=== PATIENT | male | born 1960 | race African-American/Black ===

== ENCOUNTER 2016-12-12 20:43 | Inpatient (IN) | payer MEDICARE, OTHER ==
--- NOTE | ~2016-12-12 | ST ---
Unit #: [id number] #: [id number] Patient: COLT CURTIS [id number] [facility] [address] [place], [place] [address] [id number] I MR#: [id number] NAME: COLT CURTIS : 1960 SEX: M STUDY DATE/TIME: 12/16/2016 UNIT: [facility] ROOM: 572 STUDY DESCRIPTION: CARDIOLOGY STUDY Attending Physician: Jabari Chandler M.D. Primary Care Physician: Samreen Samayoa [facility] CARDIOLOGY REPORT EXAM Walking Lexiscan REASON FOR EXAM Shortness of breath. SUMMARY Baseline EKG shows normal sinus rhythm with some T-wave inversions in leads V5, V6, II, III, and aVF. A total of 0.4 mg of Lexiscan was injected per protocol followed by Cardiolite. Patient walked for a total of 4 minutes. Baseline resting heart rate was 88 beats per minute and sima to a maximum of 134 beats per minute. Resting blood pressure was 142/94 and increased to 178/92. The patient had no symptoms, however, there were multifocal PVCs noted and frequent PACs also noted. There remained T-wave inversions in leads V5, V6, II, III, and aVF. The test was stopped due to protocol completion. There were no obvious ST changes and the patient was asymptomatic. However, there was frequent multifocal arrhythmia noted, atrial and ventricular premature complexes and some T-wave inversions in various leads as above. Please correlate with Cardiolite imaging. Dictated by... Chela Francis APRN for Jia Snyder TD: 12/16/2016 16:46 JOB #: [id number] CARDIOLOGY REPORT X CARDIOLOGY REPORT
--- NOTE | ~2016-12-12 | EKG ---
PATIENT: COLT CURTIS UNIT #: [id number] Ventricular Rate: 83 BPM Atrial Rate: 83 BPM P-R Interval: 134 ms QRS Duration: 86 ms Q-T Interval: 372 ms QTC Calculation(Bezet): 437 ms P Union: 41 degrees Calculated R Union: 45 degrees Calculated T Union: -132 degrees Diagnosis Line: Normal sinus rhythm Diagnosis Line: Nonspecific T wave abnormality Diagnosis Line: Abnormal ECG Diagnosis Line: When compared with ECG of 16-DEC-2016 11:18, Diagnosis Line: Premature atrial complexes are no longer Present Diagnosis Line: T wave inversion no longer evident in Lateral Diagnosis Line: leads Diagnosis Line: Confirmed by VIRAJ BOSTON MD ([id number]) on Diagnosis Line: 12/17/2016 12:08:37 PM INTERPRETING MD: LACEY
--- NOTE | ~2016-12-12 | CR72 ---
[facility] A Service of [facility] RADIOLOGY TEXT RESULTS PATIENT: COLT CURTIS LOCATION: [facility] 5711-20 : 62 UNIT #: [id number] AGE: [address]: Jabari Chandler MD SEX: M ORDER DR: [id number] [facility] [address] [place], [place] [address] [id number] I MR#: [id number] Acc #: [id number] NAME: COLT CURTIS. : 1960 SEX: M STUDY DATE/TIME: 12/12/2016 19:42 UNIT: [facility] ROOM: [facility] STUDY DESCRIPTION: CR Chest Single View Portable Attending Physician: Ailyn Morelos M.D. Ordering Physician: John Fernández M.D. Primary Care Physician: [facility] MEDICAL IMAGING REPORT This report is preliminary unless electronic signature is present EXAM AP portable chest. DATE OF EXAM 12/12/2016 HISTORY 56-year-old male in the ED complaining of 4-day history of shortness of air, congestion and cough. TECHNIQUE AP portable upright chest x-ray. FINDINGS The exam shows diffusely increased interstitial markings throughout both lungs, greatest in the perihilar regions and lung bases. This is new since prior studies. The appearance suggests mild interstitial pulmonary edema which may be cardiogenic or noncardiogenic. Diffuse interstitial pneumonitis should be excluded. There was no airspace consolidation or visible pleural effusion. The heart is mildly enlarged. IMPRESSION Pulmonary findings suggesting mild interstitial pulmonary edema, correlate clinically. Mild cardiomegaly. Dictated by... Efren Danielle M.D. THIS IS AN ELECTRONICALLY VERIFIED REPORT Efren Danielle M.D. at 12/13/2016 10:17 AM RGW/jt [facility] A Service of [facility] RADIOLOGY TEXT RESULTS PATIENT: COLT CURTIS LOCATION: [facility] 5711-20 : 61 UNIT #: [id number] AGE: [address]: Jabari Chandler MD SEX: M ORDER DR: TD: 12/13/2016 00:48 JOB #: [id number] MEDICAL IMAGING REPORT COPY
--- NOTE | ~2016-12-12 | DS ---
Unit #: [id number] #: [id number] Patient: COLT CURTIS [id number] [address] [place], [place] [address] [id number] I MR#: [id number] NAME: COLT CURTIS. ROOM: 572 Age: 56 Sex: M Admission Date: 12/12/2016 : 1960 Discharge Date: 12/18/2016 Attending Physician: Jabari Chandler M.D. Primary Care Physician: Samreen Samayoa [facility] DISCHARGE SUMMARY CONSULTANTS 1. Dr. Florian Barnett. 2. Dr. Mitchel Cardenas. PROCEDURES Cardiac catheterization. Normal coronary arteries. EF of 30%. ADMITTING DIAGNOSIS Acute hypoxic respiratory failure with shortness of breath. SECONDARY DIAGNOSES 1. Chronic obstructive pulmonary disease. 2. Diabetes. 3. Hypertension. 4. Hyperlipidemia. 5. History of parietoccipital hemorrhage in the past secondary to his anticoagulation. 6. Gout. 7. Hepatitis C. 8. History of substance abuse. HISTORY OF PRESENT ILLNESS The patient is a 56-year-old gentleman with multiple medical problems including COPD, diabetes, hypertension, hyperlipidemia, hepatitis C, who presented to the emergency room with the chief complaint of shortness of breath. Initially, he was treated for possible community-acquired pneumonia. In the workup, he was noted to have an EF of 30% and for further workup he initially had a stress test. The stress test was concerning for ischemia and for further workup he had a cardiac catheterization. Cardiac catheterization showed normal coronary arteries and his medications were titrated. He was restarted on Coumadin. We had a long conversation with the patient. Explained to the patient that if he notices any increased bleeding if there is any change in his medications he needs to talk to his physician. Will be restarting on Coumadin without any bridging anticoagulation. I am requesting that he follow up with the cardiology clinic for titrating his INR to keep it in a target range between 2 to 3. Explained to him he is at increased risk for bleeding and if he notices any bleeding, he needs to stop the medication. He is doing clinically better and he will be discharged home today. He is requested to follow up with cardiology, nephrology and primary care in one to two weeks. He has an appointment set up for cardiology. We will also request him to get an INR checked and follow up with Cardiology as an outpatient. PHYSICAL EXAMINATION ON DISCHARGE Unit #: [id number] #: [id number] Patient: COLT CURTIS VITAL SIGNS: Temperature 98.4, pulse rate 84, respiratory rate 16, blood pressure 165/106. GENERAL: Patient is alert and oriented times 3, lying in the bed in no acute distress. HEENT: Normocephalic, atraumatic. No icterus. PERRLA. Extraocular muscles are intact. NECK: Supple. No JVD. HEART: S1, S2 regular rate and rhythm. CHEST: Bilateral equal air entry. Clear to auscultation. ABDOMEN: Soft, nontender. EXTREMITIES: No edema. Normal peripheral pulses. DISCHARGE MEDICATIONS 1. Norvasc 10 mg daily. 2. Lisinopril 40 mg p.o. h.s. 3. Metformin 500 mg two tablets p.o. daily. 4. Prednisone tapering dose. 5. Coumadin 5 mg p.o. daily. 6. Metoprolol 25 mg p.o. b.i.d. 7. Lasix 40 mg p.o. daily. 8. Humibid LA 600 mg p.o. b.i.d. 9. Lipitor 20 mg h.s. 10. Levemir 50 units subcu b.i.d. 11. Aspirin 81 mg daily. 12. Protonix 40 mg p.o. daily. Total time spent in his care 35 minutes. Dictated by... Jia Hernandez TD: 12/18/2016 16:24 JOB #: [id number] DISCHARGE SUMMARY X X DISCHARGE SUMMARY
--- NOTE | ~2016-12-12 | EKG ---
PATIENT: COLT CURTIS UNIT #: [id number] Ventricular Rate: 88 BPM Atrial Rate: 88 BPM P-R Interval: 138 ms QRS Duration: 108 ms Q-T Interval: 392 ms QTC Calculation(Bezet): 474 ms P Long Barn: 48 degrees Calculated R Long Barn: 60 degrees Calculated T Long Barn: -109 degrees Diagnosis Line: Sinus rhythm with Premature supraventricular Diagnosis Line: complexes Diagnosis Line: ST and T wave abnormality, consider inferolateral Diagnosis Line: ischemia Diagnosis Line: Prolonged QT Diagnosis Line: Abnormal ECG Diagnosis Line: When compared with ECG of 12-DEC-2016 19:38, Diagnosis Line: ST now depressed in Inferior leads Diagnosis Line: Confirmed by VIRAJ BOSTON MD ([id number]) on Diagnosis Line: 12/15/2016 10:53:17 PM INTERPRETING MD: LACEY
--- NOTE | ~2016-12-12 | CT57 ---
[facility] A Service of [facility] RADIOLOGY TEXT RESULTS PATIENT: COLT CURTIS LOCATION: [facility] 572-01 : 62 UNIT #: [id number] AGE: [address]: Jabari Chandler MD SEX: M ORDER DR: [id number] [facility] [address] [place], [place] [address] [id number] I MR#: [id number] Acc #: [id number] NAME: COLT CURTIS. : 1960 SEX: M STUDY DATE/TIME: 12/15/2016 12:27 UNIT: [facility] ROOM: [facility] STUDY DESCRIPTION: CT Chest Wo Cont Attending Physician: Jabari Chandler M.D. Ordering Physician: Physician Non-Staff Primary Care Physician: [facility] MEDICAL IMAGING REPORT This report is preliminary unless electronic signature is present EXAM CT chest, noncontrast, 12/15/2016 HISTORY 56-year-old male admitted to the hospital through the ED on 12/12/2016 with acute hypoxic respiratory failure. 10-day history of shortness of air. TECHNIQUE CT examination of the chest was performed without IV contrast. This CT exam was performed with one or more of the following radiation dose reduction techniques: automatic exposure control, adjustment of mA and/or kV according to patient size, and iterative reconstruction. FINDINGS Lung images show mild diffuse central lobular and paraseptal emphysema, greatest in the upper lobes. There is plate-like atelectasis in both lung bases along with tiny bilateral pleural effusions. Diffusely increased interstitial markings present on the chest x-ray of 12/12/2016 suggested potential mild interstitial edema, but this is not demonstrated on chest CT today. Heart size is normal, and there is no pericardial effusion. Mildly prominent mediastinal lymph nodes are nonspecific. Limited images through the uppermost abdomen show mild hepatomegaly and postop changes of cholecystectomy. IMPRESSION 1. Mild diffuse centrilobular and paraseptal emphysema, greatest in the upper lobes. 2. Tiny bilateral pleural effusions with plate-like atelectasis in the dependent posterior lung bases. Lungs otherwise clear today. 3. Heart size is normal. No pericardial effusion. [facility] A Service of [facility] RADIOLOGY TEXT RESULTS PATIENT: COLT CURTIS LOCATION: [facility] 572-01 : [birth year] UNIT #: [id number] AGE: [address]: Jabari Chandler MD SEX: M ORDER DR: Dictated by... Efren Danielle M.D. THIS IS AN ELECTRONICALLY VERIFIED REPORT Efren Danielle M.D. at 12/16/2016 8:40 AM CRISTELA/sharda TD: 12/15/2016 21:44 JOB #: [id number] MEDICAL IMAGING REPORT COPY
--- NOTE | ~2016-12-12 | US77 ---
[facility] A Service of [facility] RADIOLOGY TEXT RESULTS PATIENT: COLT CURTIS LOCATION: [facility] 572-01 : 62 UNIT #: [id number] AGE: [address]: Jabari Chandler MD SEX: M ORDER DR: [id number] [facility] [address] [place], [place] [address] [id number] I MR#: [id number] Acc #: [id number] NAME: COLT CURTIS : 1960 SEX: M STUDY DATE/TIME: 12/16/2016 17:54 UNIT: [facility] ROOM: [facility] STUDY DESCRIPTION: US Kidney Bilateral Complete Attending Physician: Jabari Chandler M.D. Ordering Physician: Jennifer Cardenas M.D. Primary Care Physician: [facility] MEDICAL IMAGING REPORT This report is preliminary unless electronic signature is present EXAM Renal ultrasound bilateral 12/16/2016 INDICATIONS Chronic renal disease (stage III). Diabetes, insulin dependent diabetes, hypertension. TECHNIQUE Sonographic imaging kidneys was performed bilaterally. We have no comparisons. FINDINGS The bladder is sonographically unremarkable. The right kidney measures 11.9 x 6.2 x 6.2 cm and the left kidney measures 13.7 x 8.2 x 6.9 cm. No shadowing stone on either side. Incidental probably benign cyst in the lateral midpole right kidney measures 1.3 x 1.1 cm. Incidental likely benign cyst associated with the midpole left kidney measures 1.4 x 1.4 cm. Both of these cysts demonstrate very faint internal echoes but no internal color-flow. Kidneys are otherwise unremarkable. Consider interval followup ultrasound in 1 year to reassess stability of the probably benign minimally complicated cyst. IMPRESSION 1. No hydronephrosis or shadowing stone in either kidney. 2. There are 2 probably benign minimally complicated cysts, 1 in each kidney. Suggest interval followup ultrasound in 1 year to reassess stability. 3. Bladder unremarkable. Dictated by... Mahendra Clark M.D. [facility] A Service of [facility] RADIOLOGY TEXT RESULTS PATIENT: COLT CURTIS LOCATION: [facility] 572-01 : [birth year] UNIT #: [id number] AGE: [address]: Jabari Chandler MD SEX: M ORDER DR: THIS IS AN ELECTRONICALLY VERIFIED REPORT Mahendra Clark M.D. at 12/17/2016 10:18 AM Gómez TD: 12/17/2016 01:47 JOB #: [id number] MEDICAL IMAGING REPORT COPY
--- NOTE | ~2016-12-12 | HP ---
Unit #: [id number] #: [id number] Patient: COLT CURTIS [id number] [address] [address] [id number] I MR#: [id number] NAME: COLT CURTIS. ROOM: 82143 Age: 56 Sex: M Admission Date: 12/12/2016 : 1960 Attending Physician: Ailyn Morelos M.D. Primary Care Physician: [facility] HISTORY AND PHYSICAL CHIEF COMPLAINT Short of breath. HISTORY OF PRESENT ILLNESS The patient is a 56-year-old male with past medical history of likely COPD, diabetes, hypertension, hyperlipidemia, parietooccipital hemorrhage, gout, hepatitis C, who presented to the emergency department for evaluation of the above. The patient states that he has had a nonproductive cough for about a week. He denies any fever or chills, no chest pain. He states that the shortness of breath started today. He denies any paroxysmal nocturnal dyspnea. No orthopnea. He had dyspnea on exertion today. He denies any vomiting or diarrhea. He states that he has actually lost weight. He denies any swelling in his legs. He has had pain in his right foot similar to gout flair in the past. Upon arrival in the emergency department, the patient's oxygen saturation was 85% on room air. Chest x-ray shows increased interstitial markings concerning for edema versus pneumonitis. Lactic acid was 1.8. Rapid fu screen was negative. He was given Solu-Medrol, Levaquin and Rocephin in the emergency department. He is being admitted to [facility] for evaluation and further treatment. PAST MEDICAL HISTORY 1. Admission to [facility] May 20-2009 for rectal abscess. He underwent incision and drainage during that admission. 2. Hypertension. 3. Hyperlipidemia. 4. Diabetes. 5. History of parietooccipital hemorrhage in 2006 with no residual deficits. 6. Hepatitis C. 7. Gout. PAST SURGICAL HISTORY 1. Incision and drainage of rectal abscess. 2. Cardiac catheterization. 3. Surgery for kidney stones. 4. Cholecystectomy. SOCIAL HISTORY Unit #: [id number] #: [id number] Patient: COLT CURTIS The patient lives alone. He smokes a pack of cigarettes daily. He reports occasional alcohol use. He denies illicit drug use. He walks with a cane. FAMILY HISTORY Family history is notable for his mother dying of sepsis. She was also an IV drug user. ALLERGIES No known allergies. HOME MEDICATIONS 1. Norvasc 10 mg daily. 2. Quinapril 20 mg b.i.d. 3. Aspirin 81 mg daily. 4. Hydrochlorothiazide 25 mg daily. 5. Metformin 1000 mg b.i.d. b.i.d. 6. Levemir 35 units subcu b.i.d. REVIEW OF SYSTEMS A 10-point review of systems is negative except as indicated in the HPI. The patient states that his blood sugars are typically in the 200 range. DIAGNOSTIC STUDIES CARDIOVASCULAR: EKG shows sinus rhythm with premature atrial complexes at a rate of 83 beats per minute. IMAGING: Chest x-ray shows increased interstitial markings concerning for edema versus pneumonitis. LABORATORY: Arterial blood gas shows pH of 7.447, pCO2 of 32.8, pO2 of 54.5 on 15 L with an FIO2 of 50%. Rapid flu screen is negative. Troponin is 0.06. Lactic acid 1.8. Comprehensive metabolic panel is notable for a glucose of 314, BUN and creatinine 23 and 1.6 respectively, calcium is 8.3 but corrects when albumin of 2.9 is accounted for, alkaline phosphatase 121. Complete blood count notable for a hemoglobin and hematocrit of 11.7 and 37.3 respectively. PHYSICAL EXAMINATION VITAL SIGNS: Temperature is 97.3. Pulse 87. Respirations 18. Blood pressure 156/63. Oxygen saturation was initially 85% on room air. The patient is currently on high-flow oxygen. GENERAL: The patient is an -[place] male who is awake and alert, in no acute distress. HEENT: The head is atraumatic. Mucous membranes are moist. NECK: Neck is supple. Trachea is midline. CARDIOVASCULAR: Regular rate and rhythm. LUNGS: Demonstrate scattered wheezes and rhonchi. Breathing is not labored with conversation. ABDOMEN: Abdomen is soft, nontender, with bowel sounds present in all four quadrants. EXTREMITIES: Nontender with pedal edema. NEUROLOGIC: The patient is awake and alert. He follows commands. PSYCHIATRIC: Mood and affect are normal. The patient is cooperative. SKIN: Skin of examined areas is warm and dry. ASSESSMENT The patient is a 56-year-old male with: Unit #: [id number] #: [id number] Patient: COLT CURTIS 1. Acute respiratory failure, hypoxic. 2. Pneumonia, community acquired. 3. Likely chronic obstructive pulmonary disease exacerbation. 4. Uncontrolled diabetes. 5. Hypertension. 6. Hyperlipidemia. 7. History of parietooccipital hemorrhage. 8. Gout. 9. Hepatitis C. 10. Tobacco abuse. PLAN 1. Admit to intermediate level. 2. Normal saline at 75 mL and hour. 3. Healthy heart consistent carb diet if passes bedside swallow. 4. Titrate oxygen for sats greater than 92%. 5. Blood cultures x2. 6. Sputum culture and sensitivity. 7. Check procalcitonin level. 8. Levaquin 750 mg IV daily. 9. DuoNeb q.4 h. while awake and q.2 h. p.r.n. 10. Solu-Medrol 80 mg IV q.12 h. 11. Mucinex 600 mg p.o. b.i.d. 12. Serial cardiac enzymes. 13. Strict Is and Os. 14. Daily weights. 15. Two-D echo for further evaluation of LV function. 16. Hemoglobin A1C. 17. Low dose sliding scale insulin with Accu-Cheks. 18. Check an INR. 19. Urinalysis with culture and sensitivity. 20. Urine tox screen. 21. Protonix for GI prophylaxis since the patient will be on Solu-Medrol. 22. SCDs for DVT prophylaxis. 23. Repeat labs in the morning. 24. Additional workups and consultants based on above. Dictated by Jia Choe/elmira TD: 12/12/2016 22:38 JOB #: [id number] Unit #: [id number] #: [id number] Patient: COLT CURTIS HISTORY AND PHYSICAL X Ailyn Morelos MD HISTORY AND PHYSICAL
--- NOTE | ~2016-12-12 | TH ---
Unit #: [id number] #: [id number] Patient: CLOT CURTIS [id number] [address] [address] [id number] I MR#: [id number] NAME: COLT CURTIS. : 1960 SEX: M STUDY DATE/TIME: 12/16/2016 UNIT: [facility] ROOM: 572 STUDY DESCRIPTION: Attending Physician: Jabari Chandler M.D. Primary Care Physician: Samreen Samayoa [facility] CARDIOLOGY REPORT EXAM Lexiscan Cardiolite stress test, nuclear portion. PROCEDURE Using technetium 99m labeled Cardiolite, rest and stress SPECT images were obtained. Multiple SPECT images were obtained in various views including horizontal and vertical long axis and short axis views of the left ventricle. Images were obtained by gated SPECT method. The patient was administered 11.18 mCi of Cardiolite at rest. The patient was administered 32.4 mCi of Cardiolite after Lexiscan infusion was completed. On the stress images, there is a medium-sized area of severe decreased isotope activity inferiorly. The rest images also show a medium-sized area of decreased isotope activity inferiorly. Comparing rest and stress images, there is a medium-sized area of predominantly fixed defect involving the inferior wall of the left ventricle. Cannot rule out inferior wall myocardial infarction. The left ventricular ejection fraction is calculated to be 35%. There is severe hypokinesis of the inferior wall. The left ventricular cavity is qwdn-oj-cxtnsywepa dilated both at rest and post stress. CONCLUSION 1. Suspicion for possible medium-sized area of inferior wall myocardial infarction. 2. The left ventricular ejection fraction is calculated to be 35%. 3. There is severe inferior wall hypokinesis noted. 4. The left ventricular cavity is wmqn-[id number]-nxelvzyxsf dilated both at rest and post stress. 5. Abnormal Lexiscan Cardiolite stress test suggestive of coronary artery disease. Clinical correlation is requested. Technically limited study. Dictated by... Jia Snyder TD: 12/16/2016 16:10 JOB #: [id number] Unit #: [id number] #: [id number] Patient: COLT CURTIS CARDIOLOGY REPORT X Gladys Hargrove MD <ELECTRONICALLY SIGNED> 05/10/17 1428 CARDIOLOGY REPORT
--- NOTE | ~2016-12-12 | CO ---
Unit #: [id number] #: [id number] Patient: COLT CURTIS [id number] [address] [place], [place] [address] [id number] I MR#: [id number] NAME: COLT CURTIS ROOM: 572 Age: 56 Sex: M Admission Date: 12/12/2016 : 1960 Attending Physician: Jabari Chandler M.D. Primary Care Physician: [facility] Consultation Date: 12/16/2016 CONSULTATION REPORT REASON FOR CONSULT Renal insufficiency. Thank you very much for asking us to see this patient in consultation. HISTORY OF PRESENT ILLNESS Mr. Curtis is a 56-year-old male with history of COPD, diabetes, hypertension, who presented to the hospital on 12/12/2016 for shortness of breath, was diagnosed with probable COPD, who was started on steroids and antibiotics. The patient had non-SVT while he was here. The patient is apparently supposed to undergo possible heart catheterization tomorrow, Friday. Because of increased creatinine, I was asked to see the patient. The patient states he has never seen a kidney doctor before. He was noted back in 2011 to have a 1+ proteinuria; in 2016 in April, he had 3+ proteinuria with a creatinine of 1.3 at that time, it was 1.6 when he came in, down to 1.4 and 1.7 today. To note, his sugars have been running extremely elevated over the last several days secondary to presumed IV Solu-Medrol, which is changed to p.o. prednisone today. He is alert. He denies any shortness of breath now, chest pain, chest heaviness, nausea, or vomiting. Denies any urinary symptoms. PAST MEDICAL HISTORY History of COPD, history of diabetes mellitus, history of hypertension, history of hyperlipidemia, history of parieto-occipital hemorrhage in 2006 with no residual, history of hepatitis C, history of gout, history of nephrolithiasis in the past, status post cholecystectomy. ALLERGIES No known drug allergies. SOCIAL HISTORY He is a positive smoker. Positive EtOH. He denies any drugs apparently, but he has positive cocaine, marijuana, and opioids in his system on a drug screen. FAMILY HISTORY Positive for hypertension. MEDICATIONS He was on Accupril 20 mg b.i.d., which was held today; Lasix 40 mg a day, which was held today; insulin; prednisone now 40 mg a day; Lopressor b.i.d.; Lovenox 40 mg a day; Protonix daily; Norvasc 10 mg a day; aspirin 81 mg a day. Unit #: [id number] #: [id number] Patient: COLT CURTIS REVIEW OF SYSTEMS As mentioned in the HPI. He denies any fevers, chills, visual problems, sinus problems, cough, hemoptysis, sore throat, or difficulty swallowing. No neck pain or neck stiffness. No chest pain, chest tightness, or palpitations. He was short of breath that is improved. No severe abdominal pain, nausea, vomiting, or diarrhea. No urinary symptoms of starting or stopping burning. No significant swelling. No recent seizures, strokes, or skin rashes. PHYSICAL EXAMINATION GENERAL: He is alert and oriented. VITAL SIGNS: T-max 98.2, pulse 86 to 90, blood pressure 122 to 154 over 80 to 91. HEENT: He is normocephalic and atraumatic. Pupils are equal, round, and reactive to light. Extraocular muscles are intact. Hearing appears to be normal. Mouth clear. No erythema. No exudate. NECK: Supple. No JVD. CARDIAC: Regular rate without a rub. No S3 or S4. LUNGS: Clear bilaterally. ABDOMEN: Bowel sounds positive. Nontender, soft. No masses felt. No hepato-organomegaly noted. EXTREMITIES: He has no edema, clubbing, or cyanosis. SKIN: No rashes. JOINTS: No joint swelling. : Deferred. DIAGNOSTIC STUDIES LABORATORY RESULTS: Showed sodium of 136, potassium 3.4, chloride is 106, bicarb is 24, BUN of 28, creatinine 1.7, glucose is 426, calcium is 8.1. Hemoglobin is 10.2, white count 14,900, platelets 155,000. UA shows specific gravity of 1.035 upon admission, 3+ protein, 1000 glucose, 2 to 5 rbc's, 5 to 10 wbc's. IMAGING STUDIES: CT of his chest showed emphysema, small effusion. ASSESSMENT AND PLAN 1. Renal insufficiency. The patient probably has late 2/early stage 3 chronic kidney disease, possibly related to diabetes, hypertension versus other. He does have a history of hepatitis C. We would like to check C3 and C4. If it is low, then we may consider ordering a cryoglobulin test. We would like to also check protein to creatinine ratio, check an SPEP, check a renal ultrasound depending on what all this shows, depending on what further workup and treatment. Certainly, for heart catheterization, we will start him on some IV fluids. I agree with holding his MYRA inhibitor and his Lasix for now. We will put him on Mucomyst, although I am not sure that really makes a big difference. Also, we will increase his Lipitor to 80 mg today and tomorrow at least around his heart catheterization, and certainly if his creatinine is the same or better, then proceed with heart catheterization. We will put him on low normal saline tonight and check in the morning. 2. Hypokalemia. The patient had decreased potassium of 3.4 and it is probably even less than that with high sugars of 400. We will give a couple more doses of p.o. and check labs in the morning including CMP, magnesium, and phosphorus. 3. History of supraventricular tachycardia. Workup underway. Possible catheterization tomorrow or Friday as mentioned above. 4. Diabetes mellitus with increased glucose. 5. Hypertension. Continue to hold his MYRA inhibitor and angiotensin Unit #: [id number] #: [id number] Patient: COLT CURTIS receptor beto for now, though once he has heart catheterization and his renal function remains stable, then would restart it, obviously that is a drug of choice for proteinuria and renal insufficiency with diabetes. Dictated by... Jia Lawton/angelika TD: 12/17/2016 04:45 JOB #: [id number] CONSULTATION REPORT X Adrian Cardenas MD X CONSULTATION REPORT
--- NOTE | ~2016-12-12 | CO ---
Unit #: [id number] #: [id number] Patient: COLT CURTIS [id number] [address] [place], [place] [address] [id number] I MR#: [id number] NAME: COLT CURTIS ROOM: 572 Age: 56 Sex: M Admission Date: 12/12/2016 : 1960 Attending Physician: Jabari Chandler M.D. Primary Care Physician: [facility] Consultation Date: 12/13/2016 CONSULTATION REPORT REASON FOR CONSULTATION Nonsustained ventricular tachycardia. PRIMARY CARE PHYSICIAN [facility]. HISTORY OF PRESENT ILLNESS This is a pleasant 56-year-old male with a past medical history of hypertension; hyperlipidemia; COPD; stroke, the patient reports that at one point he was started on Coumadin and Lovenox secondary to stroke and then developed arminda-occipital hemorrhage; gout; history of hep C; and tobacco abuse. The patient presented to the emergency room secondary to complaints of shortness of breath. He reports he had been short of breath for few days with cough and thought he had the virus that was going around. He reports, however yesterday, worsened to the point, where he could not catch his breath. He states that he had never been like this before. He denied any complaints of chest pain, palpitations, dizziness, or syncope. He denies any complaints of fever or chills. There is no history of PND or orthopnea. In the emergency room, the patient's oxygen saturation was found to be 85% on room air. His chest x-ray showed increased interstitial markings concerning for edema versus pneumonitis. Lactic acid was 1.8. Flu screen was negative. He was given some IV steroids and started on antibiotics in the emergency department. His troponin has been negative x2. His EKG shows sinus rhythm with PACs rate of 83 beats per minute, does have Q waves present in the septal leads consistent with previous septal infarct, age undetermined, the patient also has abnormality noted in the inferolateral leads. At present, he is resting in bed. He appears comfortable. He denies any complaints again of chest pain. PAST MEDICAL HISTORY 1. Hypertension. 2. Hyperlipidemia. 3. Diabetes mellitus. 4. History of stroke treatment with he states Coumadin and Lovenox, then subsequent development of arminda-occipital hemorrhage in 2006 with no residual. 5. Hepatitis C. 6. Gout. PAST SURGICAL HISTORY 1. I and D of rectal abscess. 2. Cardiac catheterization in [address] Knight. No significant Unit #: [id number] #: [id number] Patient: COLT CURTIS coronary artery disease was noted, LVEF of 55% to 60%, trivial MR this was done secondary to an abnormal nuclear scan in 2004. SOCIAL HISTORY The patient lives alone. His brother visits frequently. He states he has been smoking since age 13 about one pack per day. He reports occasional beers now, but does report a history of heavy alcohol abuse in the past. his urine drug tox is positive for cocaine, marijuana, and opiates even though the patient denies use. He uses a cane for ambulation. He reports he is on disability. FAMILY HISTORY Father with CHF. Mother with cancer. Brother with hypertension. ALLERGIES No known drug allergies. HOME MEDICATIONS Norvasc 10 mg p.o. daily, quinapril 20 mg p.o. b.i.d., aspirin 81 mg daily, hydrochlorothiazide 25 mg p.o. daily, Glucophage 1000 mg p.o. b.i.d., and Levemir 35 units subcu b.i.d. REVIEW OF SYSTEMS Positive for cough, fatigue, shortness of breath, tobacco abuse, history of stroke also history of arminda-occipital hemorrhage after treatment with Coumadin and Lovenox, hepatitis C, panic attacks, gout. Otherwise negative. DIAGNOSTIC STUDIES LABORATORY RESULTS: Sodium 134, potassium 3.8, chloride 105, CO2 of 21, BUN 24, creatinine 1.4, glucose 415. Hemoglobin 10.9, hematocrit 34.4, WBCs 5.6, platelet count 359. Troponin has been negative x2. Urinalysis shows 3+ protein, greater than 1000 glucose, 1+ blood. His urine drug tox is positive for cocaine, marijuana, and opiates even though the patient denies use. Blood cultures are currently pending. IMAGING STUDIES: Chest x-ray shows increased interstitial markings concerning for edema versus pneumonitis. CARDIOVASCULAR STUDIES: EKG shows normal sinus rhythm, rate of 83 beats per minute, PACs, Q waves are present in the septal leads consistent with septal infarct, age undetermined, abnormality in the inferolateral leads is noted. PHYSICAL EXAMINATION GENERAL: This is a pleasant 56-year-old male, who is resting in bed, and currently in no acute distress. VITAL SIGNS: Temperature 97.7, respiratory rate 18 to 20, pulse 78, blood pressure 154/102 to 154/99. BMI of 32. HEENT: Head is atraumatic and normocephalic. Mucous membranes are moist. NECK: Supple. Trachea is midline. No JVD. No carotid bruits. LUNGS: The patient is noted to have scattered wheezes and rhonchi. No rales. ABDOMEN: Obese, soft, nontender, and nondistended. Bowel sounds are present. EXTREMITIES: Pulses are palpable. No clubbing, cyanosis, or edema. NEUROLOGIC: He is awake and alert x3. He follows commands. He moves extremities appropriately. Unit #: [id number] #: [id number] Patient: COLT CURTIS ASSESSMENT 1. Acute hypoxic respiratory failure. 2. Pneumonia. 3. Accelerated idioventricular rhythm. 4. Congestive heart failure secondary to hypertensive heart disease. 5. Poorly-controlled diabetes mellitus. 6. Hypertension. 7. History of old CVA, treated with Coumadin with subsequent arminda-occipital hemorrhage with no residual. 8. Hepatitis C. 9. Gout. 10. Chronic obstructive pulmonary disease most likely. 11. Continued nicotine abuse. 12. Denies illicit drug use, however, his urine drug tox screen is positive for cocaine, marijuana, and opiates. PLAN The patient has been admitted for the above reasons. He does appear to have congestive heart failure secondary to hypertensive heart disease. However, we will obtain a 2D echocardiogram with Doppler studies to evaluate left ventricular function as well as for any valvular abnormalities. He will be started on metoprolol 25 mg p.o. b.i.d. for blood pressure control and to avoid any arrhythmias as the patient did have an episode of accelerated idioventricular rhythm. We will check TSH and T4 levels as well as a fasting lipid profile in the a.m. He will also be started on statin therapy daily. Depending on the outcome of the 2D echocardiogram, he may need evaluation for coronary artery disease. The patient does have risk factors for coronary artery disease which include hypertension, diabetes mellitus, hyperlipidemia, obesity, as well as continued tobacco abuse. He was encouraged to stop smoking, counseled on the importance of lifestyle modification including diet, exercise, and weight loss. Further recommendations to follow pending Dr. Barnett's assessment. Dictated by... Mary Ann Navarro A.P.R.N. for Jia Rudd/angelika TD: 12/14/2016 01:18 JOB #: [id number] CONSULTATION REPORT X Mary Ann Navarro APRN X CONSULTATION REPORT
--- NOTE | ~2016-12-12 | EKG ---
PATIENT: COLT CURTIS UNIT #: [id number] Ventricular Rate: 83 BPM Atrial Rate: 83 BPM P-R Interval: 144 ms QRS Duration: 90 ms Q-T Interval: 404 ms QTC Calculation(Bezet): 474 ms P Gila: 47 degrees Calculated R Gila: 65 degrees Calculated T Gila: -51 degrees Diagnosis Line: Sinus rhythm with Premature atrial complexes Diagnosis Line: Septal infarct , age undetermined Diagnosis Line: T wave abnormality, consider inferior ischemia Diagnosis Line: Abnormal ECG Diagnosis Line: When compared with ECG of 10-AUG-2010 05:26, Diagnosis Line: Premature atrial complexes are now Present Diagnosis Line: Inverted T waves have replaced nonspecific T wave Diagnosis Line: abnormality in Inferior leads Diagnosis Line: Confirmed by DEBBY ALEJANDRA MD ([id number]) on 12/13/2016 Diagnosis Line: 5:19:05 PM INTERPRETING MD: [place] CALDWELL
[2016-12-12 19:49] LABS: ARTERIAL BLD GAS O2 SATURATION 85.2 % (90.0-100.0); ARTERIAL BLOOD GAS CARBOXY HB 1.8 %sat (0.0-9.0); ARTERIAL BLOOD GAS HCO3 22.6 mmol/L; ARTERIAL BLOOD GAS MET HB 0.8 %sat (0.0-2.0); ARTERIAL BLOOD GAS PCO2 32.8 mmHg (35.0-45.0); ARTERIAL BLOOD GAS pH 7.447 (7.350-7.450)
[2016-12-12 19:50] LABS: ARTERIAL BLOOD GAS ALLEN TEST NORMAL; ARTERIAL BLOOD GAS ART SITE LEFT RADIAL; ARTERIAL BLOOD GAS DELIVERY VENTURI MASK; ARTERIAL BLOOD GAS PO2 54.5 mmHg (80.0-100); ARTERIAL DRAW? YES
[2016-12-12 20:07] LABS: INFLUENZA A NEG (NEG); INFLUENZA B NEG (NEG)
[2016-12-12 20:09] LABS: POC - CKMB 2.6 ng/mL (0.0-7.9); POC - TROPONIN 0.06 ng/mL (<=0.05)
[2016-12-12 20:19] LABS: BASOPHIL% 0.7 % (0-2.5); EOSINOPHIL# 0.1 X10e3 (0-0.7); EOSINOPHIL% 1.9 % (0.0-7.0); HEMATOCRIT 37.3 % (38.0-50.0); HEMOGLOBIN 11.7 gm/dL (13.0-16.0); LYMPHOCYTE# 2.8 X10e3 (1.0-3.5); LYMPHOCYTE% 42.8 % (17.0-45.0); MEAN CELL VOLUME 82.2 FL (83-96); MEAN CORPUSCULAR HEMOGLOBIN 25.8 PG (28-34); MEAN CORPUSCULAR HGB CONC 31.4 g/dL (30-36); MEAN PLATELET VOLUME 7.8 FL (6.5-11.5); MONOCYTE# 0.4 X10e3 (0-1.0); MONOCYTE% 6.7 % (3.0-12.0); NEUTROPHIL# 3.2 X10e3 (1.5-7.1); NEUTROPHIL% 47.9 % (40-75); PLATELET COUNT 381 X10e3 (140-420); RED BLOOD COUNT 4.54 X10e (3.90-5.60); RED CELL DISTRIBUTION WIDTH 22.1 % (11.0-15.5); WHITE BLOOD COUNT 6.6 X10e3 (4.0-10.5)
[2016-12-12 20:21] LABS: ALBUMIN SERUM 2.9 g/dL (3.5-5.0); BILIRUBIN, DIRECT 0.1 mg/dL (0.0-0.2); BILIRUBIN,INDIRECT 0.7 mg/dL (0.0-0.9); BILIRUBIN,TOTAL 0.8 mg/dL (0.2-2.0); BUN/CREATININE RATIO 14.37; CALCIUM SERUM 8.3 mg/dL (8.4-10.2); CREATININE SERUM 1.6 mg/dL (0.6-1.4); POTASSIUM 3.6 mmol/L (3.5-5.1); PROTEIN TOTAL SERUM 7.6 g/dL (6.0-8.3)
[2016-12-12 20:31] LABS: DIFF IND YES
[~2016-12-12 20:43] MED LIST: ACCUPRIL; ACCUPRIL40 MG PO; ACETAMINOPHEN PO; ADALATCC PO; APRESOLINE PO; ASPIRIN; ASPIRIN PO; ASPIRIN81 M1 PO; ASPIRIN81 M2 PO; AVANDIA; CALAN PO; CELEBREX; CELEXA PO; CLONIDINE HCL0.1 MG PO; COLACE PO; COUMADIN PO; DARVOCET-N 1001 TAB PO; GLUCOTROL; GLUCOTROL PO; HCTZ PO; HUMULIN 70/30 V10 ML SQ; HUMULIN 70/30 V10 ML SUBQ; HYDROCHLOROTHIA25 MG PO; KEPPRA750 MG PO; LEVEMIR SUBQ; LEVMIR; LOPRESSOR PO; LORTAB 10-5001 EACH PO; LOVENOX SUBQ; METFORMIN; METFORMIN PO; NORVASC; NORVASC PO; NORVASC10 MG PO; ORUDIS75 M1 DOB; QUINAPRIL HCL20 M1 PO; TYLENOL #3; VICODIN 5/500 T1 TAB PO; ZOCOR PO
[2016-12-12 20:46] LABS: HYPOCHROMIA SL; NUCLEATED RED BLOOD CELL 1 /100 ([, 0]); PLATELET ESTIMATE NORMAL (NORMAL)
[2016-12-12 23:30] LABS: PROTHROMBIN TIME (PATIENT) 10.2 SECONDS (9.6-11.5)
[2016-12-13 01:04] LABS: URINE APPEARANCE CLEAR; URINE BILIRUBIN NEG (NEG); URINE BLOOD 1+ (NEG); URINE COLOR YELLOW; URINE GLUCOSE >1000 MG/DL (NEG); URINE KETONE NEG (NEG); URINE LEUKOCYTE ESTERASE NEG (NEG); URINE NITRATE NEG (NEG); URINE PROTEIN 3+ (NEG); URINE SPECIFIC GRAVITY 1.035 (1.003-1.035); URINE UROBILINOGEN 0.2 MG/DL (NEG)
[2016-12-13 01:05] LABS: URINE BACTERIA AUWI NEG (NEGATIVE); URINE SQUAMOUS EPITHELIAL CELL NONE SEEN /[HPF]; UWBCS1 AUWI 0-2 (0-5)
[2016-12-13 01:09] LABS: AMPHETAMINE NEG (NEG); BARBITURATES NEG (NEG); BENZODIAZEPINES NEG (NEG); COCAINE POS (NEG); MARIJUANA POS (NEG); OPIATES POS (NEG); TRICYCLIC ANTIDEPRESSANTS NEG (NEG); U METHADONE NEG (NEG)
[2016-12-13 02:58] LABS: %MB 2.3 % (0.0-4.0); MB 2.6 ng/ml
[2016-12-13 06:19] LABS: BASOPHIL% 0.6 % (0-2.5); HEMATOCRIT 34.4 % (38.0-50.0); HEMOGLOBIN 10.9 gm/dL (13.0-16.0); LYMPHOCYTE# 1.3 X10e3 (1.0-3.5); LYMPHOCYTE% 22.7 % (17.0-45.0); MEAN CELL VOLUME 81.6 FL (83-96); MEAN CORPUSCULAR HEMOGLOBIN 25.9 PG (28-34); MEAN CORPUSCULAR HGB CONC 31.7 g/dL (30-36); MONOCYTE# 0.2 X10e3 (0-1.0); MONOCYTE% 3.4 % (3.0-12.0); NEUTROPHIL# 4.1 X10e3 (1.5-7.1); NEUTROPHIL% 73.3 % (40-75); PLATELET COUNT 359 X10e3 (140-420); RED BLOOD COUNT 4.22 X10e (3.90-5.60); RED CELL DISTRIBUTION WIDTH 21.1 % (11.0-15.5); WHITE BLOOD COUNT 5.6 X10e3 (4.0-10.5)
[2016-12-13 06:27] LABS: DIFF IND NO
[2016-12-13 07:03] LABS: ALBUMIN SERUM 2.5 g/dL (3.5-5.0); ALKALINE PHOSPHATASE 111 U/L (32-92); ALT (SGPT) 23 U/L (10-40); AST (SGOT) 23 U/L (10-42); BILIRUBIN,TOTAL 0.4 mg/dL (0.2-2.0); BLOOD UREA NITROGEN 24 mg/dL (9-23); BUN/CREATININE RATIO 17.14; CARBON DIOXIDE 21 mmol/L (22-31); CHLORIDE 105 mmol/L (100-111); CREATININE SERUM 1.4 mg/dL (0.6-1.4); GLOM FILT RATE Estimated ABOVE60 mL/min (>60); GLUCOSE FASTING 415 mg/dL (70-110); POTASSIUM 3.8 mmol/L (3.5-5.1); SODIUM 134 mmol/L (135-145)
[2016-12-13 09:43] LABS: %MB 2.4 % (0.0-4.0); MB 2.4 ng/ml
[2016-12-13 13:27] LABS: THYROID STIMULATING HORMONE 0.53 uIU/ml (0.34-5.60)
[2016-12-13 13:34] LABS: FREE THYROXIN (T4) 1.02 ng/dL (0.58-1.64)
[2016-12-14 08:29] LABS: HEMATOCRIT 34.7 % (38.0-50.0); HEMOGLOBIN 10.5 gm/dL (13.0-16.0); MEAN CELL VOLUME 81.3 FL (83-96); MEAN CORPUSCULAR HEMOGLOBIN 24.5 PG (28-34); MEAN CORPUSCULAR HGB CONC 30.2 g/dL (30-36); MEAN PLATELET VOLUME 7.9 FL (6.5-11.5); RED BLOOD COUNT 4.27 X10e (3.90-5.60); RED CELL DISTRIBUTION WIDTH 21.7 % (11.0-15.5)
[2016-12-14 08:30] LABS: WHITE BLOOD COUNT 20.8 X10e3 (4.0-10.5)
[2016-12-14 09:16] LABS: BUN/CREATININE RATIO 20.58; CALCIUM SERUM 8.1 mg/dL (8.4-10.2); CREATININE SERUM 1.7 mg/dL (0.6-1.4); GLOM FILT RATE Estimated 54.1 mL/min (>60); POTASSIUM 3.7 mmol/L (3.5-5.1)
[2016-12-15 12:36] LABS: BASOPHIL% 0.2 % (0-2.5); HEMATOCRIT 36.1 % (38.0-50.0); HEMOGLOBIN 10.9 gm/dL (13.0-16.0); LYMPHOCYTE# 0.6 X10e3 (1.0-3.5); LYMPHOCYTE% 2.8 % (17.0-45.0); MEAN CORPUSCULAR HGB CONC 30.2 g/dL (30-36); MEAN PLATELET VOLUME 8.1 FL (6.5-11.5); MONOCYTE# 0.7 X10e3 (0-1.0); NEUTROPHIL# 20.5 X10e3 (1.5-7.1); PLATELET COUNT 507 X10e3 (140-420); RED BLOOD COUNT 4.35 X10e (3.90-5.60); RED CELL DISTRIBUTION WIDTH 21.9 % (11.0-15.5); WHITE BLOOD COUNT 21.8 X10e3 (4.0-10.5)
[2016-12-15 12:37] LABS: DIFF IND NO
[2016-12-16 07:54] LABS: HEMATOCRIT 32.2 % (38.0-50.0); HEMOGLOBIN 10.2 gm/dL (13.0-16.0); MEAN CELL VOLUME 81.1 FL (83-96); MEAN CORPUSCULAR HEMOGLOBIN 25.6 PG (28-34); MEAN CORPUSCULAR HGB CONC 31.5 g/dL (30-36); MEAN PLATELET VOLUME 7.9 FL (6.5-11.5); RED BLOOD COUNT 3.97 X10e (3.90-5.60); RED CELL DISTRIBUTION WIDTH 21.1 % (11.0-15.5); WHITE BLOOD COUNT 14.9 X10e3 (4.0-10.5)
[2016-12-16 08:25] LABS: BUN/CREATININE RATIO 16.47; CALCIUM SERUM 8.1 mg/dL (8.4-10.2); CREATININE SERUM 1.7 mg/dL (0.6-1.4); GLOM FILT RATE Estimated 54.1 mL/min (>60); POTASSIUM 3.4 mmol/L (3.5-5.1)
[2016-12-16 22:55] LABS: CREATININE,RANDOM URINE 44 mg/dL
[2016-12-16 23:08] LABS: TOTAL PROTEIN,RANDOM URINE 131 mg/dl (<10)
[2016-12-17 07:13] LABS: HEMATOCRIT 33.1 % (38.0-50.0); HEMOGLOBIN 10.3 gm/dL (13.0-16.0); MEAN CELL VOLUME 80.7 FL (83-96); MEAN CORPUSCULAR HEMOGLOBIN 25.1 PG (28-34); MEAN CORPUSCULAR HGB CONC 31.1 g/dL (30-36); MEAN PLATELET VOLUME 7.8 FL (6.5-11.5); RED BLOOD COUNT 4.11 X10e (3.90-5.60); RED CELL DISTRIBUTION WIDTH 21.1 % (11.0-15.5); WHITE BLOOD COUNT 11.3 X10e3 (4.0-10.5)
[2016-12-17 07:33] LABS: PROTHROMBIN TIME (PATIENT) 10.1 SECONDS (9.6-11.5)
[2016-12-17 07:56] LABS: ALBUMIN SERUM 2.5 g/dL (3.5-5.0); ALKALINE PHOSPHATASE 162 U/L (32-92); ALT (SGPT) 70 U/L (10-40); AST (SGOT) 49 U/L (10-42); BILIRUBIN,TOTAL 0.6 mg/dL (0.2-2.0); BLOOD UREA NITROGEN 29 mg/dL (9-23); BUN/CREATININE RATIO 19.33; CALCIUM SERUM 8.2 mg/dL (8.4-10.2); CARBON DIOXIDE 24 mmol/L (22-31); CHLORIDE 109 mmol/L (100-111); CREATININE SERUM 1.5 mg/dL (0.6-1.4); GLOM FILT RATE Estimated ABOVE60 mL/min (>60); GLUCOSE FASTING 272 mg/dL (70-110); MAGNESIUM 1.7 mg/dL (1.6-3.0); PHOSPHOROUS 2.9 mg/dL (2.5-4.6); POTASSIUM 3.8 mmol/L (3.5-5.1); SODIUM 139 mmol/L (135-145)
[2016-12-18 07:35] LABS: HEMOGLOBIN 10.9 gm/dL (13.0-16.0); MEAN CELL VOLUME 80.5 FL (83-96); MEAN CORPUSCULAR HEMOGLOBIN 25.1 PG (28-34); MEAN CORPUSCULAR HGB CONC 31.2 g/dL (30-36); MEAN PLATELET VOLUME 7.5 FL (6.5-11.5); RED BLOOD COUNT 4.35 X10e (3.90-5.60); RED CELL DISTRIBUTION WIDTH 21.5 % (11.0-15.5); WHITE BLOOD COUNT 12.5 X10e3 (4.0-10.5)
[2016-12-18 08:08] LABS: BLOOD UREA NITROGEN 25 mg/dL (9-23); BUN/CREATININE RATIO 19.23; CALCIUM SERUM 8.7 mg/dL (8.4-10.2); CARBON DIOXIDE 24 mmol/L (22-31); CHLORIDE 106 mmol/L (100-111); CREATININE SERUM 1.3 mg/dL (0.6-1.4); GLOM FILT RATE Estimated ABOVE60 mL/min (>60); GLUCOSE FASTING 174 mg/dL (70-110); POTASSIUM 4.2 mmol/L (3.5-5.1); SODIUM 137 mmol/L (135-145)
[2016-12-18] MEDS ORDERED: PREDNISONE10 MG PO (16:15)
[2016-12-18] MEDS ORDERED: PROTONIX PO (16:17)
[2016-12-18] MEDS ORDERED: METOPROLOL TAR25 MG PO (16:18)
[2016-12-18] MEDS ORDERED: HUMIBID-LA600 MG PO (16:19)
[2016-12-18] MEDS ORDERED: LASIX PO (16:19)
[2016-12-18] MEDS ORDERED: LIPITOR20 MG PO (16:21)
[2016-12-18] MEDS ORDERED: PROVENTIL INH (16:41)
[2016-12-18] MEDS ORDERED: ACCUPRIL40 MG PO (16:48)
[2016-12-18] MEDS ORDERED: SENOKOT S1 TAB PO (17:10)
[2016-12-18] MEDS ORDERED: NICOTINE TRANSD14 MG TOP (17:10)
[2016-12-19 01:31] LABS: COMPLEMENT C3 114 mg/dL (90-180); COMPLEMENT C4 25 mg/dL (16-47)
[2017-05-21] MEDS ORDERED: FERRO-TIME325 MG PO (09:01)
[2017-05-21] MEDS ORDERED: HYDRALAZINE HCL50 MG PO (09:02)
[2017-05-21] MEDS ORDERED: FUROSEMIDE40 MG PO (09:02)
[2017-05-21] MEDS ORDERED: AMIODARONE HCL200 MG PO (09:03)
[2017-05-21] MEDS ORDERED: NORVASC10 MG PO (09:04)
[2017-05-21] MEDS ORDERED: MAG-OX 400400 M1 PO (09:04)
[2017-05-21] MEDS ORDERED: LOPRESSOR PO (09:05)
[2017-05-21] MEDS ORDERED: COREG6.25 MG PO (09:05)
[2017-05-21] MEDS ORDERED: METFORMIN PO (09:06)
[2017-05-21] MEDS ORDERED: ACCUPRIL40 MG PO (09:07)
[2017-05-21] MEDS ORDERED: ALDACTONE25 MG PO (09:07)
[2017-05-21] MEDS ORDERED: XARELTO20 MG PO (09:07)
[2017-05-21] MEDS ORDERED: LIPITOR40 MG PO (09:08)
== END 2016-12-18 17:32 | disposition home or self-care (01) | DRG 286 ==
LOC: CED 20:43 → CEDOF 22:20 → C5C 23:31
PROVIDERS: Emergency Medicine; Family Medicine; Internal Medicine; Internal Medicine Cardiovascular Disease; Internal Medicine Nephrology
PROC: B246YZZ Ultrasonography of Right and Left Heart using Other Contrast (ICD-10-PCS; 2016-12-13)
PROC: 4A023N7 Measurement of Cardiac Sampling and Pressure, Left Heart, Percutaneous Approach (ICD-10-PCS; principal; 2016-12-17)
PROC: B211YZZ Fluoroscopy of Multiple Coronary Arteries using Other Contrast (ICD-10-PCS; 2016-12-17)
PROC: B215YZZ Fluoroscopy of Left Heart using Other Contrast (ICD-10-PCS; 2016-12-17)
DX: I13.0 Hypertensive heart and chronic kidney disease with heart failure and stage 1 through stage 4 chronic kidney disease, or unspecified chronic kidney disease (principal); J96.01 Acute respiratory failure with hypoxia; I50.41 Acute combined systolic (congestive) and diastolic (congestive) heart failure; I47.1 Supraventricular tachycardia; I27.2 Other secondary pulmonary hypertension; N18.3 Chronic kidney disease, stage 3 (moderate); E11.65 Type 2 diabetes mellitus with hyperglycemia; F17.210 Nicotine dependence, cigarettes, uncomplicated; E78.5 Hyperlipidemia, unspecified; Z86.73 Personal history of transient ischemic attack (TIA), and cerebral infarction without residual deficits; M10.9 Gout, unspecified; B19.20 Unspecified viral hepatitis C without hepatic coma; Z82.49 Family history of ischemic heart disease and other diseases of the circulatory system; R80.9 Proteinuria, unspecified; Z79.82 Long term (current) use of aspirin; Z79.4 Long term (current) use of insulin
CPT/HCPCS: 36600; 71010; 71250; 76770; 78452; 80048; 80053; 80061; 80076; 80307; 81003; 82308; 82550; 82553; 82570; 82803; 82947; 83036; 83605; 83735; 84100; 84156; 84439; 84443; 84484; 85025; 85027; 85610; 85730; 86160; 86334; 87040; 87070; 87086; 87205; 87804; 93005; 93017; 93306; 94640; 94644; 94760; 96374; 96375; 99291; A9500; C1769; C1887; C1894; J0696; J1644; J1650; J1815; J1940; J1956; J2060; J2250; J2785; J2920; J2930; J3010

== ENCOUNTER 2016-12-23 04:07 | Inpatient (IN) | payer MEDICARE, OTHER ==
--- NOTE | ~2016-12-23 | EKG ---
PATIENT: COLT CURTIS UNIT #: [id number] Ventricular Rate: 82 BPM Atrial Rate: 82 BPM P-R Interval: 132 ms QRS Duration: 88 ms Q-T Interval: 392 ms QTC Calculation(Bezet): 457 ms P [place]: 44 degrees Calculated R [place]: 52 degrees Calculated T [place]: -99 degrees Diagnosis Line: Sinus rhythm with Premature supraventricular Diagnosis Line: complexes Diagnosis Line: T wave abnormality, consider inferior ischemia Diagnosis Line: Abnormal ECG Diagnosis Line: When compared with ECG of 17-DEC-2016 08:11, Diagnosis Line: Premature supraventricular complexes are now Diagnosis Line: Present Diagnosis Line: Confirmed by NEMESIO CROOKS MD ([id number]) on Diagnosis Line: 12/24/2016 4:06:30 PM INTERPRETING MD: DAKSHA CALDWELL
--- NOTE | ~2016-12-23 | CR7 ---
[facility] A Service of [facility] & [facility] RADIOLOGY TEXT RESULTS PATIENT: COLT CURTIS LOCATION: [address] : [birth year] UNIT #: [id number] AGE: [address]: Jabari Chandler MD SEX: M ORDER DR: [id number] [facility] [address] [place], [place] [address] [id number] I MR#: [id number] Acc #: [id number] NAME: COLT CURTIS : 1960 SEX: M STUDY DATE/TIME: 12/23/2016 15:37 UNIT: [facility] ROOM: [facility] STUDY DESCRIPTION: CR Abdomen Single AP View Attending Physician: Jabari Chandler M.D. Ordering Physician: Jabari Chandler M.D. Primary Care Physician: [facility] MEDICAL IMAGING REPORT This report is preliminary unless electronic signature is present EXAM AP abdomen. DATE 12/23/2016 at 15:37 HISTORY Dobbhoff placement today. COMPARISON None. FINDINGS The radiopaque tip of the enteric feeding tube projects into the distal gastric body - duodenal junction. Dictated by... Ángela Baires M.D. THIS IS AN ELECTRONICALLY VERIFIED REPORT Ángela Baires M.D. at 12/24/2016 2:08 PM DANNIE/sharda TD: 12/24/2016 04:50 JOB #: [id number] MEDICAL IMAGING REPORT COPY
--- NOTE | ~2016-12-23 | CR72 ---
[facility] A Service of [facility] & [facility] RADIOLOGY TEXT RESULTS PATIENT: COLT CURTIS LOCATION: [address] : [birth year] UNIT #: [id number] AGE: [address]: Jabari Chandler MD SEX: M ORDER DR: [id number] [facility] [address] [place], [place] [address] [id number] I MR#: [id number] Acc #: [id number] NAME: COLT CURTIS : 1960 SEX: M STUDY DATE/TIME: UNIT: [facility] ROOM: [facility] STUDY DESCRIPTION: CR Chest Single View Portable Attending Physician: Jabari Chandler M.D. Ordering Physician: Ankush Paulson M.D. Primary Care Physician: [facility] MEDICAL IMAGING REPORT This report is preliminary unless electronic signature is present EXAM Portable chest 12/23 at 03:45 INDICATIONS Respiratory failure. Endotracheal tube placement. TECHNIQUE/COMPARISON AP portable chest is compared with 12/12/2016 FINDINGS ET tube in the mid trachea in good position. The heart is enlarged. There is emphysema. Diffuse bilateral interstitial infiltrates are worsened since the prior exam and presumably reflect diffuse pulmonary edema. There is a small volume of right pleural fluid. There is no pneumothorax. IMPRESSION ET tube mid trachea. Cardiomegaly and vascular congestion. There is emphysema with pulmonary edema, which has worsened from the prior study. There is a small volume of right pleural fluid. Dictated by... Dameon Lambert Jr., M.D. THIS IS AN ELECTRONICALLY VERIFIED REPORT Dameon Lambert Jr., M.D. at 12/24/2016 6:41 AM RLK/to TD: 12/23/2016 12:56 JOB #: [id number] MEDICAL IMAGING REPORT COPY
--- NOTE | ~2016-12-23 | DS ---
Unit #: [id number] #: [id number] Patient: COLT CURTIS [id number] [facility]. [place], [place] [address] [id number] I MR#: [id number] NAME: COLT CURTIS ROOM: 318 Age: 56 Sex: M Admission Date: 12/23/2016 : 1960 Discharge Date: 12/26/2016 Attending Physician: Jabari Chandler M.D. Primary Care Physician: [facility] DISCHARGE SUMMARY CONSULTANTS 1. Dr. Camarena. 2. Dr. Barnett. ADMITTING DIAGNOSIS Acute hypoxic respiratory failure. FURTHER DIAGNOSES 1. Acute on chronic systolic heart failure. 2. Hypertension. 3. Diabetes. 4. History of hepatitis C. 5. History of gout. HISTORY OF PRESENTING ILLNESS The patient is a 56-year-old -[place]el[place] gentleman with a past medical history of diabetes, hypertension, who was recently discharged from [facility] on the with new onset acute congestive heart failure. Presented back to the emergency room through EMS because of hypoxia and shortness of breath. Apparently, he did not take his Lasix at home and was eating food with high salt content. In the hospital course, initially he was intubated. He was in the ICU and diuresed. In the hospital course, slowly his breathing started to feel better. He is extubated, he is doing clinically better. I spoke with the patient and his brother at length. I explained to them the need to be compliant with the medications, need to watch the diet and salt intake. The patient had runs of SVTs. Cardiology recommended the patient to have an event monitor and started on beta beto and Lopressor at 15 mg twice a day and requested the patient to follow as an outpatient. Cardiology mentioned it is okay to discharge the patient. He is very eager to go home. On the day of the discharge, his physical examination: VITAL SIGNS - temperature 98.7, pulse rate 83, respiratory rate 16, blood pressure 162/113. The patient is alert and oriented x3, lying in the bed, in no acute distress. HEENT - normocephalic, atraumatic. No icterus. PERRLA. Extraocular muscles intact. NECK is supple. No JVD. HEART - S1, S2. Regular rate and rhythm. CHEST - bilaterally equal, clear to auscultation. ABDOMEN - soft, nontender. EXTREMITIES - no edema, normal pulses. DISCHARGE MEDICATIONS Unit #: [id number] #: [id number] Patient: COLT CURTIS 1. Magnesium oxide 400 mg twice a day. 2. Metoprolol tartrate 50 mg twice a day. 3. Hydralazine 25 mg p.o. b.i.d. 4. Metformin 1000 mg twice a day. 5. Norvasc 10 mg daily. 6. Senokot two tabs p.o. at bedtime. 7. Lasix 40 mg in the morning. 8. Humibid LA 600 mg twice a day. 9. Lipitor 20 mg daily. 10. Quinapril 20 mg twice a day. 11. Levemir 50 units subcu twice a day. 12. Aspirin 81 mg daily. 13. Spironolactone 25 mg daily. 14. Protonix 40 mg daily. 15. Imdur 30 mg daily. He was instructed to follow with cardiology and his primary care in one to two weeks. We are going to repeat his blood pressures and if the blood pressures are lower than 140/90s then will discharge. Total time spent in his care - 35 minutes. Dictated by... Jia Hernandez TD: 12/26/2016 12:39 JOB #: [id number] DISCHARGE SUMMARY X X DISCHARGE SUMMARY
--- NOTE | ~2016-12-23 | CR63 ---
[facility] A Service of [facility] & [facility] RADIOLOGY TEXT RESULTS PATIENT: COLT CURTIS LOCATION: [facility] 318- : [birth year] UNIT #: [id number] AGE: [address]: Jabari Chandler MD SEX: M ORDER DR: [id number] [facility] [address] [place], [place] [address] [id number] I MR#: [id number] Acc #: [id number] NAME: COLT CURTIS : 1960 SEX: M STUDY DATE/TIME: 12/26/2016 7:35 UNIT: [address] ROOM: [facility] STUDY DESCRIPTION: CR Chest 2 View Attending Physician: Jabari Chandler M.D. Ordering Physician: Jason Camarena M.D. Primary Care Physician: [facility] MEDICAL IMAGING REPORT This report is preliminary unless electronic signature is present EXAM PA and lateral chest. INDICATION 56-year-old male with shortness of breath since December 23. COMPARISON Comparison with yesterday. FINDINGS Interval extubation. Improved appearance of the chest with improved inspiratory volume and decreased bilateral infiltrates. Heart size mildly enlarged. Degenerative changes thoracic spine. IMPRESSION Improved appearance of the chest with decreased bilateral infiltrates and improved inspiratory volume. Interval extubation. Dictated by... Tremaine Sawyer M.D. THIS IS AN ELECTRONICALLY VERIFIED REPORT Tremaine Sawyer M.D. at 12/26/2016 4:39 PM KATHI/leo TD: 12/26/2016 09:13 JOB #: [id number] MEDICAL IMAGING REPORT COPY
--- NOTE | ~2016-12-23 | HP ---
Unit #: [id number] #: [id number] Patient: COLT CURTIS [id number] [facility] [address] [facility]. [place], [place] [address] [id number] I MR#: [id number] NAME: COLT CURTIS. ROOM: [facility] Age: 56 Sex: M Admission Date: 12/23/2016 : 1960 Attending Physician: Jabari Chandler M.D. Primary Care Physician: [facility] HISTORY AND PHYSICAL CHIEF COMPLAINT Shortness of breath. HISTORY OF PRESENT ILLNESS The patient is a 56-year-old gentleman with a past medical history of diabetes, hypertension, hyperlipidemia, history of hepatitis C, gout and history of congestive heart failure with an ejection fraction of 30%. He was recently discharged from [facility]. He was brought to the emergency room by EMS because of shortness of breath. Apparently the patient lives alone and he was seen well by the family on Friday evening. On Friday he called 911 and EMS attempted to intubate him because of acute respiratory distress. He was brought to the emergency room and in the emergency room he was intubated. The patient is unable to provide any history. I spoke with the patient's brothers and sisters and the patient's nurse and reviewed the records. In the emergency room he was intubated and sedated and admitted for further care. PAST MEDICAL HISTORY 1. History of congestive heart failure with an ejection fraction of 30%. He was seen by Dr. Barnett the last hospitalization. He had a cardiac catheterization. He had normal coronaries. He was started on medical management. He was also on Coumadin. 2. History of hyperlipidemia. 3. History of diabetes. 4. History of high blood pressure. 5. History of chronic obstructive pulmonary disease. 6. History of hepatitis C. PAST SURGICAL HISTORY 1. Incision and drainage of rectal abscess. 2. History of cardiac catheterization. 3. Surgery for renal stones. 4. Cholecystectomy. SOCIAL HISTORY The patient lives alone. He smokes a pack of cigarettes daily. Occasional alcohol. Per family no illicit drug use. HOME MEDICATIONS Reviewed as per the recent discharge summary. 1. Norvasc 10 mg daily. Unit #: [id number] #: [id number] Patient: COLT CURTIS 2. Lisinopril 40 mg p.o. at bedtime. 3. Metformin 500 mg p.o. b.i.d. 4. Prednisone tapering dose. 5. Coumadin 5 mg p.o. daily. 6. Metoprolol 25 mg p.o. b.i.d. 7. Lasix 40 mg p.o. daily. 8. Humibid LA 600 mg p.o. b.i.d. 9. Lipitor 20 mg at bedtime. 10. Levemir 50 units subcutaneous b.i.d. 11. Aspirin 81 mg daily. 12. Protonix 40 mg daily. REVIEW OF SYSTEMS Unable to obtain. PHYSICAL EXAMINATION GENERAL: The patient is sedated and orally intubated. VITALS: Temperature 98.7, pulse 66, respiratory rate 18, blood pressure 112/84. HEENT: Normocephalic, atraumatic. CHEST: Bilateral equal entry. Bibasilar crackles. HEART: S1 and S2, irregular. ABDOMEN: Soft, nontender. EXTREMITIES: No edema. Normal pulses. DIAGNOSTIC STUDIES LABORATORY: Glucose 544, BUN 20, creatinine 1.1, sodium 133, potassium 4.7, chloride 103, bicarb 24, calcium 8, magnesium 1.5, albumin 2.6, BNP 455, LDL 153 from 12/14/2016, triglycerides 200, white blood cell count 8.6, hemoglobin 9.3, platelet count 309. ASSESSMENT/PLAN 1. Acute hypoxic respiratory failure. Concern for acute on chronic systolic heart failure. Ejection fraction of 30%. Will gently diurese him and monitor. Other possibility of pneumonia because he was just discharged from the hospital, possible healthcare associated. Will check a chest x-ray, sputum gram stain and culture, procalcitonin levels. Will start him on broad spectrum antimicrobials and if the procalcitonin is low will stop the antimicrobials. Will also request cardiology and pulmonary to evaluate the patient. 2. Diabetes. Accu-Cheks morning and evening. High level insulin sliding scale. 3. Hypertension. Will titrate his medications and monitor. 4. DVT precautions. 5. Chronic obstructive pulmonary disease, stable. 6. Further recommendations per hospital course. Dictated by Jia Hernandez TD: 12/23/2016 12:29 JOB #: [id number] Unit #: [id number] #: [id number] Patient: COLT CURTIS HISTORY AND PHYSICAL X X HISTORY AND PHYSICAL
--- NOTE | ~2016-12-23 | CR72 ---
[facility] A Service of [facility] RADIOLOGY TEXT RESULTS PATIENT: COLT CURTIS LOCATION: [address] : [birth year] UNIT #: [id number] AGE: [address]: Jabari Chandler MD SEX: M ORDER DR: [id number] [facility] [address] [facility]. [place], [place] [address] [id number] I MR#: [id number] Acc #: [id number] NAME: COLT CURTIS : 1960 SEX: M STUDY DATE/TIME: 12/24/2016 6:20 UNIT: [facility] ROOM: [facility] STUDY DESCRIPTION: CR Chest Single View Portable Attending Physician: Jabari Chandler M.D. Ordering Physician: Jason Camarena M.D. Primary Care Physician: [facility] MEDICAL IMAGING REPORT This report is preliminary unless electronic signature is present EXAM Frontal chest, 12/24/2016 INDICATION Respiratory failure in a 56-year-old male. Intubated patient. Symptoms 2 days, hypertension, short of breath. TECHNIQUE Frontal chest COMPARISON 12/23/2016 FINDINGS ET tube tip in good position above the cuong. Enteric tube tip below the diaphragm but not in the field of view. Cardiac silhouette borderline enlarged but stable. There has been interval improvement in interstitial infiltrates bilaterally likely reflecting improvement in pulmonary edema. Residual atelectasis or faint interstitial edema/infiltrates in the perihilar and lower lung zones bilaterally. No new effusion or pneumothorax. IMPRESSION 1. Tubes and lines in satisfactory position to the extent visualized. New enteric tube with its tip below the diaphragm and not in the field of view. 2. Borderline to mild cardiomegaly. Interval improvement of the interstitial infiltrates bilaterally since 12/23/2016. Dictated by... Mahendra Clark M.D. THIS IS AN ELECTRONICALLY VERIFIED REPORT [facility] A Service of [facility] RADIOLOGY TEXT RESULTS PATIENT: COLT CURTIS LOCATION: [facility]-19 : [birth year] UNIT #: [id number] AGE: [address]: Jabari Chandler MD SEX: M ORDER DR: Mahendra Clark M.D. at 12/24/2016 4:38 PM VERITO/sierra TD: 12/24/2016 11:18 JOB #: [id number] MEDICAL IMAGING REPORT COPY
--- NOTE | ~2016-12-23 | CO ---
Unit #: [id number] #: [id number] Patient: COLT CURTIS [id number] [address] [place], [place] [address] [id number] I MR#: [id number] NAME: COLT CURTIS ROOM: [facility] Age: 56 Sex: M Admission Date: 12/23/2016 : 1960 Attending Physician: Jabari Chandler M.D. Primary Care Physician: [facility] Consultation Date: 12/23/2016 CONSULTATION REPORT REASON FOR CONSULTATION Respiratory failure. HISTORY OF PRESENT ILLNESS The patient is a 56-year-old gentleman, who was recently at this institution in fact, discharged on 12/18/2016 after acute respiratory failure. He underwent evaluation, which included cardiac catheterization with normal coronary arteries, but with an EF of 30%. At that time, he also had a positive tox screen. He now presents to the emergency room with shortness of breath. He required intubation and obviously cannot add to the history. Chest x-ray showed bilateral pulmonary infiltrates consistent with congestive heart failure. PAST MEDICAL HISTORY Remarkable for diabetes, hypertension, hyperlipidemia, remote parieto-occipital hemorrhage in 2006 with apparent no residual deficits according to EHR, hepatitis C, and gout. MEDICATIONS At home are unclear. He was discharged on Norvasc, lisinopril, metformin, prednisone taper, Coumadin, metoprolol, Lasix, Humibid, Lipitor, Levemir, insulin, aspirin, and Protonix. ALLERGIES No known medical allergies. SOCIAL HISTORY He does smoke and he does drink. Past tox screen showed cocaine and marijuana as well as opiates. FAMILY HISTORY Unobtainable. REVIEW OF SYSTEMS Unobtainable. PHYSICAL EXAMINATION GENERAL: Orally intubated, comfortable on the ventilator. VITAL SIGNS: He is afebrile and has been afebrile throughout his ER stay, pulse 60, respiratory rate is 20, blood pressure is 125/93. He has not been hypotensive and in fact, he has had blood pressures on admission of 190/118. He is 5 feet 11 inches, 257 pounds, BMI is 32. HEENT: Pupils are equal, round, and reactive to light. Sclerae anicteric. Head atraumatic. He is orally intubated. Please note that he Unit #: [id number] #: [id number] Patient: COLT CURTIS did fight eye exam. NECK: Supple. Jugular venous pressures appear elevated. CHEST: Equal breath sounds. Short expiratory phase. No wheeze. No definite consolidation. CARDIAC: Reveals distant heart tones. Regular rate and rhythm. No pathologic murmur, rub, or gallop. ABDOMEN: Soft and nontender. No hepatomegaly or rebound. EXTREMITIES: Reveal no clubbing, cyanosis, or edema. No calf tenderness. SKIN: Warm and dry without rash or diaphoresis. NEUROLOGIC: He is sedated, cannot perform a full neurologic exam. DIAGNOSTIC STUDIES IMAGING STUDIES: Chest x-ray, ET tube in adequate position, pulmonary infiltrates consistent with pulmonary edema. LABORATORY RESULTS: Original arterial blood gas; pH is 7.24, pCO2 of 54, pO2 of 145 on the ventilator. Repeat arterial blood gas; pH is 7.38, pCO2 of 42, and pO2 of 174 and that was on assist control of 20, tidal volume is 650, 100%, 10 of PEEP. His glucose 371, BUN is 20, creatinine 1.1, sodium 133, magnesium 1.5. LFTs mildly elevated with an AST of 149, ALT of 121, alkaline phosphatase is 228. I do not see a BNP. INR was normal. Initial cardiac enzymes normal. White blood cell count 8.6, hemoglobin 9.3, platelet count 309. Blood cultures performed and are pending. CARDIOVASCULAR STUDIES: EKG showed some ST abnormalities laterally, but again he had normal cardiac cath just a few days ago. IMPRESSION 1. Acute respiratory failure secondary to pulmonary edema. 2. Pulmonary edema, known left ventricular dysfunction with an ejection fraction of 30%. 3. Substance abuse. 4. Tobacco abuse. 5. Hypertension with elevated blood pressure. 6. Diabetes with elevated blood sugar. 7. Anemia. 8. Hypomagnesemia. 9. Remote intracranial hemorrhage supposedly on Coumadin at discharge INR normal suggesting noncompliance. PLAN Mechanical ventilatory support. I have reduced his PEEP and FiO2 and mildly adjusted his minute ventilation. Diuresis, I will check a BNP and procalcitonin level, but I doubt infection. I will repeat his tox screen. ICU prophylaxis will be added. Thank you very much for allowing me to participate in the care of Mr. Curtis. Dictated by... Jason Camarena M.D. ANOOP/angelika TD: 12/24/2016 00:18 JOB #: [id number] Unit #: [id number] #: [id number] Patient: COLT CURTIS CONSULTATION REPORT X Jason Camarena MD CONSULTATION REPORT
[2016-12-23 04:00] LABS: POC - CKMB 2.7 ng/mL (0.0-7.9); POC - TROPONIN 0.06 ng/mL (<=0.05)
[~2016-12-23 04:07] MED LIST changes: +HUMIBID-LA600 MG PO; +LASIX PO; +LIPITOR20 MG PO; +METOPROLOL TAR25 MG PO; +NICOTINE TRANSD14 MG TOP; +PREDNISONE10 MG PO; +PROTONIX PO; +PROVENTIL INH; +SENOKOT S1 TAB PO
[2016-12-23 04:24] LABS: ARTERIAL BLD GAS O2 SATURATION 96.8 % (90.0-100.0); ARTERIAL BLOOD GAS ALLEN TEST NORMAL; ARTERIAL BLOOD GAS ART SITE RIGHT RADIAL; ARTERIAL BLOOD GAS CARBOXY HB 0.5 %sat (0.0-9.0); ARTERIAL BLOOD GAS DELIVERY VENT; ARTERIAL BLOOD GAS MET HB 1.3 %sat (0.0-2.0); ARTERIAL BLOOD GAS PCO2 54.9 mmHg (35.0-45.0); ARTERIAL BLOOD GAS VENT MODE A/C; ARTERIAL BLOOD GAS pH 7.248 (7.350-7.450); ARTERIAL DRAW? YES
[2016-12-23 05:23] LABS: HEMATOCRIT 29.2 % (38.0-50.0); HEMOGLOBIN 9.3 gm/dL (13.0-16.0); LYMPHOCYTE# 1.4 X10e3 (1.0-3.5); LYMPHOCYTE% 16.2 % (17.0-45.0); MEAN CELL VOLUME 81.5 FL (83-96); MEAN CORPUSCULAR HEMOGLOBIN 25.9 PG (28-34); MEAN CORPUSCULAR HGB CONC 31.7 g/dL (30-36); MEAN PLATELET VOLUME 7.4 FL (6.5-11.5); MONOCYTE# 0.5 X10e3 (0-1.0); MONOCYTE% 5.8 % (3.0-12.0); NEUTROPHIL# 6.7 X10e3 (1.5-7.1); PLATELET COUNT 309 X10e3 (140-420); RED BLOOD COUNT 3.58 X10e (3.90-5.60); RED CELL DISTRIBUTION WIDTH 21.8 % (11.0-15.5); WHITE BLOOD COUNT 8.6 X10e3 (4.0-10.5)
[2016-12-23 05:40] LABS: DIFF IND NO
[2016-12-23 05:55] LABS: POC - CKMB 1.7 ng/mL (0.0-7.9); POC - TROPONIN <0.05 ng/mL (<=0.05)
[2016-12-23 05:58] LABS: BLOOD UREA NITROGEN 20 mg/dL (9-23); BUN/CREATININE RATIO 18.18; CARBON DIOXIDE 24 mmol/L (22-31); CHLORIDE 103 mmol/L (100-111); CREATININE SERUM 1.1 mg/dL (0.6-1.4); GLOM FILT RATE Estimated ABOVE60 mL/min (>60); GLUCOSE FASTING 371 mg/dL (70-110); POTASSIUM 4.7 mmol/L (3.5-5.1); SODIUM 133 mmol/L (135-145)
[2016-12-23 05:59] LABS: ALBUMIN SERUM 2.6 g/dL (3.5-5.0); ALKALINE PHOSPHATASE 228 U/L (32-92); ALT (SGPT) 121 U/L (10-40); AMYLASE 39 U/L (0-46); AST (SGOT) 149 U/L (10-42); BILIRUBIN, DIRECT 0.1 mg/dL (0.0-0.2); BILIRUBIN,INDIRECT 0.5 mg/dL (0.0-0.9); BILIRUBIN,TOTAL 0.6 mg/dL (0.2-2.0); LIPASE 31 U/L (22-51); MAGNESIUM 1.5 mg/dL (1.6-3.0); PHOSPHOROUS 5.5 mg/dL (2.5-4.6); PROTEIN TOTAL SERUM 5.8 g/dL (6.0-8.3)
[2016-12-23 06:00] LABS: PROTHROMBIN TIME (PATIENT) 10.4 SECONDS (9.6-11.5)
[2016-12-23 06:05] LABS: ARTERIAL BLD GAS O2 SATURATION 97.8 % (90.0-100.0); ARTERIAL BLOOD GAS ALLEN TEST NORMAL; ARTERIAL BLOOD GAS ART SITE RIGHT RADIAL; ARTERIAL BLOOD GAS CARBOXY HB 0.4 %sat (0.0-9.0); ARTERIAL BLOOD GAS DELIVERY VENT; ARTERIAL BLOOD GAS HCO3 25.1 mmol/L; ARTERIAL BLOOD GAS MET HB 1.2 %sat (0.0-2.0); ARTERIAL BLOOD GAS PCO2 42.4 mmHg (35.0-45.0); ARTERIAL BLOOD GAS VENT MODE A/C; ARTERIAL DRAW? YES
[2016-12-23 09:54] LABS: AMPHETAMINE NEG (NEG); BARBITURATES NEG (NEG); BENZODIAZEPINES POS (NEG); COCAINE NEG (NEG); MARIJUANA NEG (NEG); OPIATES NEG (NEG); TRICYCLIC ANTIDEPRESSANTS NEG (NEG); U METHADONE NEG (NEG)
[2016-12-23 14:24] LABS: %MB 2.7 % (0.0-4.0); MB 3.7 ng/ml
[2016-12-23 21:13] LABS: %MB 0.6 % (0.0-4.0); MB 3.3 ng/ml
[2016-12-24 04:16] LABS: ARTERIAL BLD GAS O2 SATURATION 95.6 % (90.0-100.0); ARTERIAL BLOOD GAS CARBOXY HB 0.7 %sat (0.0-9.0); ARTERIAL BLOOD GAS HCO3 29.1 mmol/L; ARTERIAL BLOOD GAS MET HB 1.5 %sat (0.0-2.0); ARTERIAL BLOOD GAS PCO2 38.9 mmHg (35.0-45.0); ARTERIAL BLOOD GAS PO2 88.9 mmHg (80.0-100); ARTERIAL BLOOD GAS pH 7.483 (7.350-7.450)
[2016-12-24 04:32] LABS: ARTERIAL BLOOD GAS ALLEN TEST NORMAL; ARTERIAL BLOOD GAS ART SITE LEFT RADIAL; ARTERIAL BLOOD GAS DELIVERY VENT; ARTERIAL BLOOD GAS VENT MODE AC; ARTERIAL DRAW? YES
[2016-12-24 05:33] LABS: BASOPHIL% 0.4 % (0-2.5); EOSINOPHIL# 0.1 X10e3 (0-0.7); EOSINOPHIL% 0.7 % (0.0-7.0); HEMATOCRIT 31.8 % (38.0-50.0); HEMOGLOBIN 9.8 gm/dL (13.0-16.0); LYMPHOCYTE# 2.6 X10e3 (1.0-3.5); LYMPHOCYTE% 25.7 % (17.0-45.0); MEAN CELL VOLUME 81.4 FL (83-96); MEAN CORPUSCULAR HEMOGLOBIN 25.1 PG (28-34); MEAN CORPUSCULAR HGB CONC 30.8 g/dL (30-36); MEAN PLATELET VOLUME 7.5 FL (6.5-11.5); MONOCYTE# 0.7 X10e3 (0-1.0); MONOCYTE% 6.5 % (3.0-12.0); NEUTROPHIL# 6.9 X10e3 (1.5-7.1); NEUTROPHIL% 66.7 % (40-75); PLATELET COUNT 259 X10e3 (140-420); RED BLOOD COUNT 3.91 X10e (3.90-5.60); RED CELL DISTRIBUTION WIDTH 21.8 % (11.0-15.5); WHITE BLOOD COUNT 10.3 X10e3 (4.0-10.5)
[2016-12-24 05:37] LABS: DIFF IND NO
[2016-12-24 06:19] LABS: ALBUMIN SERUM 2.5 g/dL (3.5-5.0); ALKALINE PHOSPHATASE 158 U/L (32-92); ALT (SGPT) 112 U/L (10-40); AST (SGOT) 77 U/L (10-42); BILIRUBIN,TOTAL 0.4 mg/dL (0.2-2.0); BLOOD UREA NITROGEN 19 mg/dL (9-23); BUN/CREATININE RATIO 13.57; CALCIUM SERUM 8.5 mg/dL (8.4-10.2); CARBON DIOXIDE 28 mmol/L (22-31); CHLORIDE 104 mmol/L (100-111); CREATININE SERUM 1.4 mg/dL (0.6-1.4); GLOM FILT RATE Estimated ABOVE60 mL/min (>60); GLUCOSE FASTING 154 mg/dL (70-110); MAGNESIUM 1.6 mg/dL (1.6-3.0); POTASSIUM 4.1 mmol/L (3.5-5.1); PROTEIN TOTAL SERUM 5.3 g/dL (6.0-8.3); SODIUM 142 mmol/L (135-145)
[2016-12-24 10:48] LABS: ARTERIAL BLD GAS O2 SATURATION 95.8 % (90.0-100.0); ARTERIAL BLOOD GAS CARBOXY HB 0.4 %sat (0.0-9.0); ARTERIAL BLOOD GAS HCO3 28.5 mmol/L; ARTERIAL BLOOD GAS MET HB 1.1 %sat (0.0-2.0); ARTERIAL BLOOD GAS PCO2 39.7 mmHg (35.0-45.0); ARTERIAL BLOOD GAS PO2 95.4 mmHg (80.0-100); ARTERIAL BLOOD GAS pH 7.464 (7.350-7.450)
[2016-12-24 10:49] LABS: ARTERIAL BLOOD GAS ART SITE RIGHT RADIAL; ARTERIAL BLOOD GAS DELIVERY VENT; ARTERIAL BLOOD GAS VENT MODE CPAP; ARTERIAL DRAW? YES
[2016-12-25 05:46] LABS: BASOPHIL% 0.3 % (0-2.5); EOSINOPHIL# 0.1 X10e3 (0-0.7); EOSINOPHIL% 0.6 % (0.0-7.0); HEMATOCRIT 30.4 % (38.0-50.0); HEMOGLOBIN 9.6 gm/dL (13.0-16.0); LYMPHOCYTE# 3.3 X10e3 (1.0-3.5); LYMPHOCYTE% 30.3 % (17.0-45.0); MEAN CELL VOLUME 80.9 FL (83-96); MEAN CORPUSCULAR HEMOGLOBIN 25.5 PG (28-34); MEAN CORPUSCULAR HGB CONC 31.5 g/dL (30-36); MEAN PLATELET VOLUME 7.4 FL (6.5-11.5); MONOCYTE# 0.6 X10e3 (0-1.0); MONOCYTE% 5.6 % (3.0-12.0); NEUTROPHIL# 6.8 X10e3 (1.5-7.1); NEUTROPHIL% 63.2 % (40-75); PLATELET COUNT 209 X10e3 (140-420); RED BLOOD COUNT 3.76 X10e (3.90-5.60); RED CELL DISTRIBUTION WIDTH 21.6 % (11.0-15.5); WHITE BLOOD COUNT 10.7 X10e3 (4.0-10.5)
[2016-12-25 05:51] LABS: DIFF IND NO
[2016-12-25 07:08] LABS: ALBUMIN SERUM 2.3 g/dL (3.5-5.0); ALKALINE PHOSPHATASE 136 U/L (32-92); ALT (SGPT) 91 U/L (10-40); AST (SGOT) 63 U/L (10-42); BILIRUBIN,TOTAL 0.5 mg/dL (0.2-2.0); BLOOD UREA NITROGEN 20 mg/dL (9-23); BUN/CREATININE RATIO 16.66; CALCIUM SERUM 8.1 mg/dL (8.4-10.2); CARBON DIOXIDE 27 mmol/L (22-31); CHLORIDE 106 mmol/L (100-111); CREATININE SERUM 1.2 mg/dL (0.6-1.4); GLOM FILT RATE Estimated ABOVE60 mL/min (>60); GLUCOSE FASTING 200 mg/dL (70-110); MAGNESIUM 1.7 mg/dL (1.6-3.0); POTASSIUM 3.6 mmol/L (3.5-5.1); PROTEIN TOTAL SERUM 5.3 g/dL (6.0-8.3); SODIUM 143 mmol/L (135-145)
[2016-12-25 11:15] LABS: URINE SOURCE CLEAN CATCH
[2016-12-25 11:55] LABS: URBCS1 AUWI 0-2 /[HPF] (0-2); URINE APPEARANCE CLEAR; URINE BACTERIA AUWI NEG (NEGATIVE); URINE BILIRUBIN NEG (NEG); URINE BLOOD TRACE (NEG); URINE COLOR YELLOW; URINE GLUCOSE NEG (NEG); URINE KETONE NEG (NEG); URINE LEUKOCYTE ESTERASE NEG (NEG); URINE NITRATE NEG (NEG); URINE PH 7.5 (5-8); URINE PROTEIN 1+ (NEG); URINE SPECIFIC GRAVITY 1.007 (1.003-1.035); URINE SQUAMOUS EPITHELIAL CELL NONE SEEN /[HPF]; URINE UROBILINOGEN 0.2 MG/DL (NEG); UWBCS1 AUWI 0-2 (0-5)
[2016-12-26 05:45] LABS: HEMATOCRIT 29.2 % (38.0-50.0); HEMOGLOBIN 9.2 gm/dL (13.0-16.0); MEAN CELL VOLUME 82.7 FL (83-96); MEAN CORPUSCULAR HEMOGLOBIN 26.1 PG (28-34); MEAN CORPUSCULAR HGB CONC 31.6 g/dL (30-36); MEAN PLATELET VOLUME 7.7 FL (6.5-11.5); RED BLOOD COUNT 3.53 X10e (3.90-5.60); RED CELL DISTRIBUTION WIDTH 21.8 % (11.0-15.5); WHITE BLOOD COUNT 7.7 X10e3 (4.0-10.5)
[2016-12-26 06:23] LABS: BLOOD UREA NITROGEN 19 mg/dL (9-23); CALCIUM SERUM 7.5 mg/dL (8.4-10.2); CARBON DIOXIDE 28 mmol/L (22-31); CHLORIDE 105 mmol/L (100-111); GLOM FILT RATE Estimated ABOVE60 mL/min (>60); GLUCOSE FASTING 223 mg/dL (70-110); POTASSIUM 3.5 mmol/L (3.5-5.1); SODIUM 139 mmol/L (135-145)
[2016-12-26] MEDS ORDERED: MAGNESIUM400 MG PO (12:35)
[2016-12-26] MEDS ORDERED: HYDRALAZINE HCL25 MG PO (12:36)
[2016-12-26] MEDS ORDERED: IMDUR-ER30 M1 PO (12:39)
[2016-12-26] MEDS ORDERED: ALDACTONE25 MG PO (12:39)
[2016-12-26] MEDS ORDERED: DOXYCYCLINE HY100 M3 PO (17:16)
[2017-05-21] MEDS ORDERED: FERRO-TIME325 MG PO (09:01)
[2017-05-21] MEDS ORDERED: FUROSEMIDE40 MG PO (09:02)
[2017-05-21] MEDS ORDERED: HYDRALAZINE HCL50 MG PO (09:02)
[2017-05-21] MEDS ORDERED: AMIODARONE HCL200 MG PO (09:03)
[2017-05-21] MEDS ORDERED: NORVASC10 MG PO (09:04)
[2017-05-21] MEDS ORDERED: MAG-OX 400400 M1 PO (09:04)
[2017-05-21] MEDS ORDERED: LOPRESSOR PO (09:05)
[2017-05-21] MEDS ORDERED: COREG6.25 MG PO (09:05)
[2017-05-21] MEDS ORDERED: METFORMIN PO (09:06)
[2017-05-21] MEDS ORDERED: ALDACTONE25 MG PO (09:07)
[2017-05-21] MEDS ORDERED: XARELTO20 MG PO (09:07)
[2017-05-21] MEDS ORDERED: ACCUPRIL40 MG PO (09:07)
[2017-05-21] MEDS ORDERED: LIPITOR40 MG PO (09:08)
== END 2016-12-26 20:23 | disposition home or self-care (01) | DRG 208 ==
LOC: CED 04:07 → CEDOF 06:25 → CICCU3 11:15 → C3A PCU 12-25 11:45
PROVIDERS: Emergency Medicine; Internal Medicine
PROC: 0BH17EZ Insertion of Endotracheal Airway into Trachea, Via Natural or Artificial Opening (ICD-10-PCS; principal; 2016-12-23)
PROC: 5A1945Z Respiratory Ventilation, 24-96 Consecutive Hours (ICD-10-PCS; 2016-12-23)
PROC: 0DH67UZ Insertion of Feeding Device into Stomach, Via Natural or Artificial Opening (ICD-10-PCS; 2016-12-23)
DX: J96.01 Acute respiratory failure with hypoxia (principal); I50.23 Acute on chronic systolic (congestive) heart failure; E83.42 Hypomagnesemia; I47.1 Supraventricular tachycardia; J44.9 Chronic obstructive pulmonary disease, unspecified; I10 Essential (primary) hypertension; E11.9 Type 2 diabetes mellitus without complications; D64.9 Anemia, unspecified; M10.9 Gout, unspecified; Z79.82 Long term (current) use of aspirin; Z79.01 Long term (current) use of anticoagulants; F17.200 Nicotine dependence, unspecified, uncomplicated; B19.20 Unspecified viral hepatitis C without hepatic coma; Z86.73 Personal history of transient ischemic attack (TIA), and cerebral infarction without residual deficits
CPT/HCPCS: 36415; 36600; 71010; 71020; 74000; 80048; 80053; 80076; 80307; 81003; 82150; 82308; 82550; 82553; 82803; 82947; 83605; 83690; 83735; 83880; 84100; 84484; 85025; 85027; 85610; 85730; 87040; 87070; 87086; 87088; 87186; 87205; 93005; 93225; 93226; 94002; 94003; 94664; 94760; 94761; 96374; 96375; 99291; C9113; J0360; J0696; J1650; J1815; J1940; J2250; J3010; J3475

== ENCOUNTER 2016-12-29 04:49 | Inpatient (IN) | payer MEDICARE, OTHER ==
--- NOTE | ~2016-12-29 | CO ---
Unit #: [id number] #: [id number] Patient: COLT CURTIS [id number] [facility] [address] [facility]. [place], [place] [address] [id number] I MR#: [id number] NAME: COLT CURTIS ROOM: 306 Age: 56 Sex: M Admission Date: 12/29/2016 : 1960 Attending Physician: Jabari Chandler M.D. Primary Care Physician: [facility] Consultation Date: 12/30/2016 CONSULTATION REPORT REASON FOR CONSULTATION Severe anxiety. HISTORY OF PRESENT ILLNESS Mr. Colt Curtis is a 56-year-old male seen on 12/30 in ICU-2, bed [address] [facility]. Patient reported having severe anxiety, mood lability, trouble sleeping, panic attack. Patient denied any thoughts of harming self or others. Denied any psychotic symptoms. He denied any use of drugs or alcohol. Patient reported that he had to come here multiple times recently and having severe anxiety. Currently medications are not working. PAST PSYCHIATRIC HISTORY Remarkable for history of anxiety. No history of any inpatient treatment or any suicide attempt. MEDICAL HISTORY Remarkable for history of nonischemic systolic heart failure, ejection fraction 30%, hypertension, diabetes type 2, hepatitis C, gout, COPD, dyslipidemia, history of parietooccipital hemorrhage in 2008. MEDICATIONS Please refer to H and P. FAMILY HISTORY/SOCIAL HISTORY The patient reported that he lives by himself but some support from his . No history of any abuse. No history of any substance abuse. REVIEW OF SYSTEMS A complete review of systems is unremarkable. MENTAL STATUS EXAMINATION General appearance - Patient is dressed casually. Attention span, concentration - Fair. Speech - Loud, rapid. Oriented to time, place and person. Mood and affect - Labile. Thought process - Circumstantial. Thought content - The patient denied any thoughts of harming self or others or any psychotic symptoms. Recent and remote memory - Fair. Language - Able to name objects, repeat phrases. Fund of knowledge - Fair. Insight and judgment - Fair to slightly impaired. DIAGNOSIS 1. PSYCHIATRIC: Mood disorder NOS, major depressive disorder, recurrent, F33.2; anxiety disorder NOS, F40.01. 2. SECONDARY DIAGNOSIS: Deferred Unit #: [id number] #: [id number] Patient: COLT CURTIS 3. MEDICAL DIAGNOSIS: Please refer to H and P. 4. STRESSOR: Psychosocial stressors. ASSESSMENT AND PLAN 1. Supportive psychotherapy and psychoeducation provided to the patient. 2. Educated about benefits and side effects of medication and course and prognosis of illness. 3. Advised to start the patient on Vistaril 50 mg t.i.d. and trazodone 50 mg at bedtime for anxiety and sleep respectively. We will closely monitor. If needed, consider further adjustment in medication. Please feel free to call with any questions, telephone number . Dictated by... Jia Berman/mickie TD: 12/31/2016 12:17 JOB #: [id number] CONSULTATION REPORT X Tod Candelario MD X CONSULTATION REPORT
--- NOTE | ~2016-12-29 | HM ---
Unit #: [id number] #: [id number] Patient: COLT CURTIS [id number] [address] [place], [place] [address] [id number] I MR#: [id number] NAME: COLT CURTIS. : 1960 SEX: M STUDY DATE/TIME: 12/31/2016 UNIT: C3A PCU ROOM: 306 STUDY DESCRIPTION: Holter monitor Attending Physician: Jabari Chandler M.D. Primary Care Physician: Samreen [facility] CARDIOLOGY REPORT EXAM Holter monitor. DATE APPLIED December 26, 2016. DATE SCANNED December 31, 2016. DATE READ December 31, 2016. ORDERED BY Jabari Chandler M.D. READ BY [facility], Dr. Florian Barnett. REASON FOR STUDY Arrhythmias. COMMENTS 1. Baseline rhythm is normal sinus. Minimum recorded heart rate is 70; maximum recorded heart rate 163. 2. Very frequent premature atrial contractions are noted. There were 11,440 isolated PACs. 3. There were 106 runs of supraventricular tachycardia recorded. The fastest recorded SVT rate is 180 beats per minute lasting 3 beats at 9 p.m. 4. An 8-beat run of atrial fibrillation is noted with ventricular rate of 160 per minute spontaneously converting to normal sinus rhythm at 8 p.m. 5. There were 1,729 isolated PVCs noted. There were 60 couplets. No runs of ventricular tachycardia were recorded. 6. No significant bradycardia is noted. IMPRESSION Abnormal 24-hour ambulatory monitoring shows 1) Normal sinus rhythm. 2) Occasional PVCs, some in couplets. 3) Very frequent PACs. 4) Short runs of supraventricular tachycardia. 5) One 8-beat run of atrial fibrillation with rapid ventricular response. The patient did not maintain any symptom or activity diary. Unit #: [id number] #: [id number] Patient: COLT CURTIS Dictated by.Jia MandujanoU/mickie TD: 01/01/2017 08:59 JOB #: [id number] CARDIOLOGY REPORT X Florian Barnett MD HOLTER MONITOR REPORT
--- NOTE | ~2016-12-29 | XA166 ---
[facility] A Service of [facility] RADIOLOGY TEXT RESULTS PATIENT: COLT CURTIS LOCATION: [address] : [birth year] UNIT #: [id number] AGE: [address]: Jabari Chandler MD SEX: M ORDER DR: [id number] [id number] [facility]. [place], [place] [address] [id number] I MR#: [id number] Acc #: [id number] NAME: COLT CURTIS : 1960 SEX: M STUDY DATE/TIME: 12/30/2016 7:26 UNIT: [facility] ROOM: [facility] STUDY DESCRIPTION: XA PICC Line Placement WO Port Attending Physician: Jabari Chandler M.D. Ordering Physician: Jason Trujillo M.D. Primary Care Physician: [facility] MEDICAL IMAGING REPORT This report is preliminary unless electronic signature is present INDICATION 56-year-old male who needs IV access. PRE-PROCEDURE The procedure was explained to the patient and/or patient wireless sales representative including risks, benefits, potential complications and potential for alternative forms of treatment. Informed consent was obtained, and prior to initiating the procedure a formal timeout procedure was performed. PROCEDURE Using full standard sterile barrier technique, including caps, gowns, gloves, masks, as well as sterile skin preparation and standard sterile draping, the right arm was prepped and draped in the usual fashion, and real-time sterile ultrasound guidance was used to localize an arm vein and to confirm vessel patency. A hard copy ultrasound image was recorded. After local anesthesia with 1% Xylocaine, the vein was punctured using real-time sterile ultrasound guidance, and an 0.018 guidewire was advanced into the superior vena cava, using fluoroscopic guidance. A 5 Malagasy double-lumen 39.0 cm PICC was then measured and deployed with the tip positioned in the superior vena cava. The position of the line was documented with a radiographic image. The line was secured in place with an adhesive dressing and an antibiotic patch was applied. Total fluoro time was 0.2 minutes. The reference air kerma is 4 mGy. IMPRESSION Successful right arm PICC line placement. Dictated by... Tremaine Sawyer M.D. THIS IS AN ELECTRONICALLY VERIFIED REPORT Tremaine Sawyer M.D. at 12/30/2016 4:55 PM [facility] A Service of [facility] RADIOLOGY TEXT RESULTS PATIENT: COLT CURTIS LOCATION: [address] : [birth year] UNIT #: [id number] AGE: [address]: Jabari Chandler MD SEX: M ORDER DR: KATHI/sierra TD: 12/30/2016 10:04 JOB #: [id number] MEDICAL IMAGING REPORT COPY
--- NOTE | ~2016-12-29 | EKG ---
PATIENT: COLT CURTIS UNIT #: [id number] Ventricular Rate: 121 BPM Atrial Rate: 121 BPM P-R Interval: 154 ms QRS Duration: 86 ms Q-T Interval: 320 ms QTC Calculation(Bezet): 454 ms P Whitelaw: 64 degrees Calculated R Whitelaw: 65 degrees Calculated T Whitelaw: -55 degrees Diagnosis Line: Sinus tachycardia with Premature atrial complexes Diagnosis Line: Left ventricular hypertrophy Diagnosis Line: Abnormal ECG Diagnosis Line: No previous ECGs available Diagnosis Line: Confirmed by DEBBY ALEJANDRA MD ([id number]) on 12/31/2016 Diagnosis Line: 7:18:09 PM INTERPRETING MD: [place] CALDWELL
--- NOTE | ~2016-12-29 | CR63 ---
[facility] A Service of [facility] & [facility] RADIOLOGY TEXT RESULTS PATIENT: COLT CURTIS LOCATION: [facility] 306-01 : [birth year] UNIT #: [id number] AGE: [address]: Jabari Chandler MD SEX: M ORDER DR: [id number] [facility] [address] [place], [place] [address] [id number] I MR#: [id number] Acc #: [id number] NAME: COLT CURTIS : 1960 SEX: M STUDY DATE/TIME: 12/31/2016 7:35 UNIT: [address] ROOM: [facility] STUDY DESCRIPTION: CR Chest 2 View Attending Physician: Jabari Chandler M.D. Ordering Physician: Gladys Hargrove M.D. [facility]: [facility] REPORT This report is preliminary unless electronic signature is present EXAM PA and lateral chest radiograph 12/31/2016 COMPARISON 12/30/2016 HISTORY Shortness of breath , missed Lasix dose, symptoms beginning 12/29. FINDINGS An PA and lateral is obtained. Heart is size is stable. Vascular markings are minimally prominent. No significant pleural fluid is identified. There is no evidence of consolidation. Right-sided PICC line terminates in the SVC. CONCLUSION Stable cardiac size. Lungs appear clear. Dictated by... Amadou Giraldo M.D. THIS IS AN ELECTRONICALLY VERIFIED REPORT Amadou Giraldo M.D. at 12/31/2016 3:37 PM JAMAAL/kleber TD: 12/31/2016 12:34 JOB #: [id number] MEDICAL IMAGING REPORT COPY
--- NOTE | ~2016-12-29 | CO ---
Unit #: [id number] #: [id number] Patient: COLT CURTIS [id number] [address] [place], [place] [address] [id number] MR#: [id number] NAME: COLT CURTIS ROOM: 306 Age: 56 Sex: M Admission Date: 12/29/2016 : 1960 Attending Physician: Jabari Chandler M.D. Primary Care Physician: [facility] Consultation Date: 12/29/2016 CONSULTATION REPORT HISTORY OF PRESENT ILLNESS Mr. Curtis is a 56-year-old black male with a history of congestive heart failure. This was third admission for acute pulmonary edema. He has ejection fraction of approximately 30%. He required intubation on his last admission while at this time, he presented with increasing shortness of breath. Chest x-ray shows less pulmonary edema and some asymmetry more so on the right lower lobe. He denies sputum production, fever, chills, hemoptysis, hoarseness or weight loss. PAST MEDICAL HISTORY Significant for diabetes, hypertension, hyperlipidemia, remote parieto-occipital hemorrhage, hepatitis C, and gout. MEDICATIONS Include Norvasc, lisinopril, metformin, Coumadin, metoprolol, Lasix, Humibid, Lipitor, Levemir, aspirin, and Protonix. ALLERGIES He has no medical allergies listed. SOCIAL HISTORY He smokes and drinks. Past tox screen shown cocaine and marijuana. FAMILY HISTORY Unremarkable. REVIEW OF SYSTEMS Significant for those above. He has had no neurologic findings, syncope, seizures, but he has had some gout pain. There is no diaphoresis or chest pain. No nausea, vomiting, diarrhea and no skin rashes. PHYSICAL EXAMINATION GENERAL: He is a heavy set white male, in no acute distress. VITAL SIGNS: Blood pressure is 120/70, pulse 71, temperature is 36.6. HEAD AND NECK: Significant for being normocephalic and atraumatic. Pupils are equal, round, and reactive to light. EXTREMITIES: Showed some edema, but no clubbing or cyanosis. LUNGS: He has basilar rales and increased AP diameter of the chest. CARDIOVASCULAR: Significant for systolic flow murmur. No S3. ABDOMEN: Soft and nontender without enlargement of liver or spleen. There was no apparent supraclavicular or cervical adenopathy. NEUROLOGIC: He is awake, alert, and oriented x3. He shows no focal findings. Unit #: [id number] #: [id number] Patient: COLT CURTIS DIAGNOSTICS STUDIES LABORATORY RESULTS: Arterial blood gases on admission showed pH of 7.34, CO2 of 39, O2 of 74. His glucose was 286, BUN of 25, creatinine 1.3. Sodium 140, potassium 4.2, chloride 108, CO2 of 22, CK was 521 with a troponin of 0.14. BNP was 347. In 11/2016, his thyroid function was normal. IMAGING STUDIES: Chest x-ray is referred to as above. IMPRESSION Recurrent pulmonary edema, but unlikely pneumonia. We will plan on diuretics and continue empiric antibiotics at this time. He is stable on noninvasive ventilation and we will continue that and ICU observation. Thank you for allowing us to participate in his care. Dictated by... Jia Dunham/angelika TD: 12/29/2016 19:14 JOB #: [id number] CONSULTATION REPORT X Vern Jarvis MD X CONSULTATION REPORT
--- NOTE | ~2016-12-29 | EKG ---
PATIENT: COLT CURTIS UNIT #: [id number] Ventricular Rate: 84 BPM Atrial Rate: 84 BPM P-R Interval: 142 ms QRS Duration: 88 ms Q-T Interval: 390 ms QTC Calculation(Bezet): 460 ms P [place]: 51 degrees Calculated R [place]: 59 degrees Calculated T [place]: -111 degrees Diagnosis Line: Sinus rhythm with Premature atrial complexes Diagnosis Line: T wave abnormality, consider inferior ischemia Diagnosis Line: T wave abnormality, consider anterolateral Diagnosis Line: ischemia Diagnosis Line: Prolonged QT Diagnosis Line: Abnormal ECG Diagnosis Line: When compared with ECG of 23-DEC-2016 04:27, Diagnosis Line: Premature atrial complexes are now Present Diagnosis Line: T wave inversion now evident in Anterior leads Diagnosis Line: Confirmed by DEBBY ALEJANDRA MD ([id number]) on 12/31/2016 Diagnosis Line: 7:23:09 PM INTERPRETING MD: [place] CALDWELL
--- NOTE | ~2016-12-29 | DS ---
Unit #: [id number] #: [id number] Patient: COLT CURTIS [id number] [address] [place], [place] [address] [id number] I MR#: [id number] NAME: COLT CURTIS. ROOM: 306 Age: 56 Sex: M Admission Date: 12/29/2016 : 1960 Discharge Date: 12/31/2016 Attending Physician: Jabari Chandler M.D. Primary Care Physician: Samreen Samayoa [facility] DISCHARGE SUMMARY CONSULTANTS 1. Dr. Barnett. 2. Dr. Jarvis. 3. Dr. Candelario. ADMITTING DIAGNOSES Acute hypoxic respiratory failure. Acute on chronic systolic heart failure with an ejection fraction of 30%. Hypertensive crisis. Questionable compliance. Anxiety. HISTORY OF PRESENTING ILLNESS The patient is a 56-year-old gentleman with a past medical history of congestive heart failure with an EF of 30%, who was recently discharged on the 12/26/2016, presented back to the emergency room on the 12/29/2016 through EMS because of shortness of breath. He was mentioning that he was having increased panic attacks and anxiety episodes at home and he was unable to sleep and he was developing tightness in the chest and shortness of breath, for which he presented to the emergency room. HOSPITAL COURSE He was started on diuretics and was started on nitroglycerin drip, because of his blood pressure is more than 200. His blood pressure stabilized. He was diuresed. I had multiple conversations with him and persisting complaints. Because of his congestive heart failure, Cardiology followed him and they titrate his medications. For anxiety Dr. Candelario was consulted. He spoke with the patient and he started him on anxiolytics. He is doing clinically better. He will be discharged home. I spoke with him at length. I explained him, he needs to be compliant with his medications, diet, and with fluid restrictions. He understands and he agrees. PHYSICAL EXAMINATION On the day of the discharge: VITAL SIGNS: Temperature 98.5, pulse rate 79, respiratory rate 20, blood pressure 129/96. GENERAL: The patient is alert and oriented x3, lying in the bed, in no acute distress. HEENT: Normocephalic and atraumatic. No icterus. EVELIN. Extraocular muscles are intact. NECK: Supple. No JVD. HEART: S1, S2. Regular rate and rhythm. CHEST: Bilateral equal air entry. Clear to auscultation. Unit #: [id number] #: [id number] Patient: COLT CURTIS ABDOMEN: Soft, nontender. EXTREMITIES: No edema. Normal pulses. DISCHARGE MEDICATIONS Trazodone 50 mg p.o. at bedtime, Vistaril 50 mg p.o. t.i.d., hydralazine 50 mg p.o. t.i.d., KCl 20 mEq p.o. b.i.d., Lasix 40 mg p.o. b.i.d., MAGnesium-Oxide 400 mg p.o. b.i.d., metformin 1000 mg p.o. b.i.d., nicotine 14 mg topical patch [id number], Norvasc 10 mg daily, Senokot 2 tabs p.o. at bedtime, Humibid LA 600 mg p.o. b.i.d., Lipitor 20 mg daily, Accupril 40 mg daily, Levemir 35 units subcu daily, aspirin 81 mg daily, Augmentin 875 mg p.o. b.i.d. for 3 more days, spironolactone 50 mg p.o. in the morning, and Protonix 40 mg daily. FOLLOWUP He is instructed to follow up with his primary care in 1 to 2 weeks. Total time spent in his discharge 35 minutes. Dictated by... Jia Hernandez/angelika TD: 01/02/2017 02:47 JOB #: [id number] DISCHARGE SUMMARY X X DISCHARGE SUMMARY
--- NOTE | ~2016-12-29 | CR72 ---
[facility]. [facility] A Service of [facility] & [facility] RADIOLOGY TEXT RESULTS PATIENT: COLT CURTIS LOCATION: [place] [id number] : [birth year] UNIT #: [id number] AGE: [address]: Jabari Chandler MD SEX: M ORDER DR: [id number] [facility] [address] [place], [place] [address] [id number] I MR#: [id number] Acc #: [id number] NAME: COLT CURTIS : 1960 SEX: M STUDY DATE/TIME: 12/30/2016 6:31 UNIT: [facility] ROOM: [facility] STUDY DESCRIPTION: CR Chest Single View Portable Attending Physician: Jabari Chandler M.D. Ordering Physician: Vern Jarvis M.D. Primary Care Physician: [facility] MEDICAL IMAGING REPORT This report is preliminary unless electronic signature is present EXAM Portable chest. INDICATION Follow up respiratory failure and right lower lobe infiltrate. FINDINGS This portable view of the chest is compared with yesterday's study. The right lower lobe infiltrate has improved. The left lung is now clear. The heart size is normal. Dictated by... Koko Gray M.D. THIS IS AN ELECTRONICALLY VERIFIED REPORT Koko Gray M.D. at 12/30/2016 9:51 AM ISA/leo TD: 12/30/2016 09:03 JOB #: [id number] MEDICAL IMAGING REPORT COPY
--- NOTE | ~2016-12-29 | CR72 ---
[facility] A Service of [facility] & [facility] RADIOLOGY TEXT RESULTS PATIENT: COLT CURTIS LOCATION: [place] [id number] : [birth year] UNIT #: [id number] AGE: [address]: Jason Trujillo MD SEX: M ORDER DR: [id number] [facility] [address] [place], [place] [address] [id number] I MR#: [id number] Acc #: [id number] NAME: COLT CURTIS : 1960 SEX: M STUDY DATE/TIME: 12/29/2016 4:52 UNIT: [facility] ROOM: [facility] STUDY DESCRIPTION: CR Chest Single View Portable Attending Physician: Jason Trujillo M.D. Ordering Physician: Dariela Sandoval M.D. Primary Care Physician: [facility] MEDICAL IMAGING REPORT This report is preliminary unless electronic signature is present EXAM AP portable chest, 12/29/2016, 04:52. HISTORY Shortness of breath, diaphoresis 1 hour prior to arrival tonight. COMPARISON STUDIES PA and lateral chest, 12/26/2016. FINDINGS Airspace disease changes are present within the bilateral lower lobes, right greater than left, and right mid lung. The findings are increased since 12/26/2016. Stable heart size. No pleural effusion or pneumothorax. IMPRESSION Interval development or increasing bilateral lower lobe and right mid lung airspace disease. Correlate clinically for pneumonia. Dictated by... Ángela Baires M.D. THIS IS AN ELECTRONICALLY VERIFIED REPORT Ángela Baires M.D. at 12/29/2016 9:57 PM DANNIE/yahir TD: 12/29/2016 13:00 JOB #: [id number] MEDICAL IMAGING REPORT COPY
--- NOTE | ~2016-12-29 | HP ---
Unit #: [id number] #: [id number] Patient: COLT CURTIS [id number] [address] [place], [place] [address] [id number] I MR#: [id number] NAME: COLT CURTIS. ROOM: [facility] Age: 56 Sex: M Admission Date: 12/29/2016 : 1960 Attending Physician: Jason Trujillo M.D. Primary Care Physician: Samreen Samayoa [facility] HISTORY AND PHYSICAL CHIEF COMPLAINT Shortness of breath. HISTORY OF PRESENT ILLNESS Mr. Colt Curtis is a 56-year-old black male with two recent admissions to our hospital for pneumonia and respiratory failure and systolic heart failure with an ejection fraction of 30%. Mr. Curtis has had worsening shortness of breath over the last 24 hours. He reports compliance with the medications that he already had prior to his discharge on the and he reports filling his new prescriptions the day after discharge on the . He had some associated mild cough but no chest pain or chest pressure. No pain with deep breathing. No fevers, chills, or night sweats. Cough was minimally productive. Upon presentation to the ER, EMS was called and he was found to be hypoxic which was not able to be brought under control with simple face mask and patient had to be placed on BiPAP and nitroglycerin drip. The patient also had a systolic blood pressure of greater than 200 on presentation and chest x-ray showed worsening bilateral pulmonary infiltrates. He was referred for admission to the ICU for acute hypoxemic respiratory failure requiring acute BiPAP. PAST MEDICAL HISTORY 1. Nonischemic systolic heart failure with an ejection fraction of 30% with recent cardiac catheterization last month with normal coronaries. 2. Hypertension. 3. Diabetes with recent A1c greater than 12. 4. Hepatitis C. 5. Gout. 6. COPD per old records. 7. Dyslipidemia. 8. History of parieto-occipital hemorrhage in 2006, secondary to anticoagulation with no residual deficits. PAST SURGICAL HISTORY 1. Incision and drainage of rectal abscess. 2. Cardiac catheterization. 3. Unknown surgery for kidney stones. 4. Cholecystectomy. SOCIAL HISTORY Lives alone. He denies any cigarettes in the last week. He denies any alcohol in the last week. He denies any illicit drug use in the last week. He has a distant history of polysubstance abuse for which he will only specify he used "just about everything." He does have a previous history of alcohol and tobacco abuse as noted on his H and P on November Unit #: [id number] #: [id number] Patient: COLT CURTIS 24. ALLERGIES No known drug allergies. FAMILY HISTORY Mother of sepsis associated with IV drug use. REVIEW OF SYSTEMS A full 10-point review of systems was done and is negative with the exception as noted in the HPI. HOME MEDICATIONS 1. Norvasc 10 mg p.o. daily. 2. Aspirin 81 mg p.o. daily. 3. Glucophage 1000 mg p.o. b.i.d. 4. Levemir 50 units subcutaneous b.i.d. 5. Protonix 40 mg p.o. daily. 6. Metoprolol tartrate 50 mg p.o. b.i.d. 7. Lasix 40 mg p.o. once daily. 8. Humibid LA 600 mg p.o. b.i.d. 9. Lipitor 20 mg p.o. daily. 10. Lisinopril 40 mg p.o. nightly. 11. Senokot S two tablets p.o. nightly. 12. Nicotine patch one patch daily unknown dose. 13. Magnesium 400 mg p.o. b.i.d. 14. Hydralazine 25 mg p.o. b.i.d. 15. Aldactone 25 mg p.o. daily. 16. Imdur ER 30 mg p.o. daily. 17. Doxycycline 100 mg p.o. b.i.d. PHYSICAL EXAMINATION VITAL SIGNS: Temperature is 98.5 rectal, pulse ran from 96-117, respiratory rate 30. O2 saturation is currently 100% on BiPAP but was reportedly in the 70s on oxygen by nasal cannula. Blood pressure was 198/117 and on nitroglycerin drip, is down to 145/92. GENERAL: The patient is alert and oriented, no acute distress on BiPAP, mild anxiety. CARDIOVASCULAR: Regular rate and rhythm. No murmurs. LUNGS: Mild inspiratory crackles bilaterally. Air exchange is 4+ out of 4 bilaterally. No rhonchi are appreciated. No wheezing. ABDOMEN: Soft, nontender, nondistended. No mass or hepatosplenomegaly. SKIN: Warm, dry. No rashes. MUSCULOSKELETAL: No joint effusions. No muscle or joint tenderness. HEAD: Normocephalic and atraumatic. EYES: Sclerae are white. Conjunctivae are normally infused. NOSE: External nares are normal. There is no bleeding or drainage. MOUTH: Mucous membranes are moist. There are no oropharyngeal lesions. NECK: Supple. No cervical lymphadenopathy. Trachea is midline. NEUROLOGIC: The patient has 5/5 strength in all four extremities. No focal neurologic deficits. DIAGNOSTIC STUDIES LABORATORY: ABG shows 7.34, pCO2 of 39.6, pO2 of 74.7 on BiPAP. Initial troponin is negative. INR and PTT are normal. Lactic acid is elevated at 2.9. Magnesium is 1.8. Glucose is 286, BUN 25, creatinine 1.3. Remainder of basic metabolic profile is normal. Lipase is normal. B natriuretic peptide is 347. CBC shows a white blood cell count of 14.2, Unit #: [id number] #: [id number] Patient: COLT CURTIS hemoglobin 11.2, platelets of 282,000. IMAGING: Chest x-ray shows worsening bilateral infiltrates. CARDIOVASCULAR: EKG is not available at this time. ASSESSMENT AND PLAN 1. Acute hypoxic respiratory failure requiring BiPAP: Will consult Dr. Amado Camarena who saw him at his previous hospitalization. Will place him in the ICU. Continue the BiPAP and diuresis for now. Will continue him on the vancomycin, Zosyn, and tobramycin for the possibility of worsening pneumonia, although that seems less likely. I would be okay with taking him off these antibiotics if this is the favored approach of pulmonology after evaluation. 2. Acute on chronic systolic heart failure: Will consult Dr. Barnett who saw him at his previous admissions. Will start him on scheduled diuresis. 3. Hypertensive emergency: The patient has been placed on nitroglycerin drip. Will continue this and titrate for systolic blood pressure less than 160. Will restart his home medications and keep him on a low-sodium diet. I have increased some of his home medications and dosage. Please see home medication reconciliation for details. 4. Nonischemic cardiomyopathy. 5. Pneumonia: Possible gram-negative lily. Will give vancomycin, Zosyn, and tobramycin for now which was started in the emergency room. 6. Diabetes mellitus type 2: Uncontrolled with hemoglobin A1c of 12.9 last month. Will continue Levemir and NovoLog and follow Accu-Cheks. Keep him on a diabetic diet. 7. Patient is a full code. 8. Deep venous thrombosis prophylaxis: Will place him on Lovenox. Dictated by Jason Trujillo M.D. ARAM/franklyn TD: 12/29/2016 09:36 JOB #: [id number] HISTORY AND PHYSICAL X Jason Trujillo MD X HISTORY AND PHYSICAL
[~2016-12-29 04:49] MED LIST changes: +ALDACTONE25 MG PO; +DOXYCYCLINE HY100 M3 PO; +HYDRALAZINE HCL25 MG PO; +IMDUR-ER30 M1 PO; +MAGNESIUM400 MG PO
[2016-12-29 05:02] LABS: ARTERIAL BLD GAS O2 SATURATION 91.6 % (90.0-100.0); ARTERIAL BLOOD GAS CARBOXY HB 0.8 %sat (0.0-9.0); ARTERIAL BLOOD GAS HCO3 21.4 mmol/L; ARTERIAL BLOOD GAS MET HB 1.4 %sat (0.0-2.0); ARTERIAL BLOOD GAS PCO2 39.6 mmHg (35.0-45.0); ARTERIAL BLOOD GAS pH 7.342 (7.350-7.450)
[2016-12-29 05:04] LABS: ARTERIAL BLOOD GAS ALLEN TEST NORMAL; ARTERIAL BLOOD GAS ART SITE RIGHT RADIAL; ARTERIAL BLOOD GAS DELIVERY BIPAP12/6; ARTERIAL BLOOD GAS PO2 74.7 mmHg (80.0-100); ARTERIAL DRAW? YES
[2016-12-29 05:07] LABS: BASOPHIL# 0.1 X10e3 (0-0.3); BASOPHIL% 0.7 % (0-2.5); DIFF IND YES; EOSINOPHIL# 0.3 X10e3 (0-0.7); HEMATOCRIT 37.1 % (38.0-50.0); HEMOGLOBIN 11.2 gm/dL (13.0-16.0); LYMPHOCYTE# 8.5 X10e3 (1.0-3.5); LYMPHOCYTE% 60.1 % (17.0-45.0); MEAN CELL VOLUME 83.1 FL (83-96); MEAN CORPUSCULAR HEMOGLOBIN 25.2 PG (28-34); MEAN CORPUSCULAR HGB CONC 30.3 g/dL (30-36); MEAN PLATELET VOLUME 7.4 FL (6.5-11.5); MONOCYTE# 0.8 X10e3 (0-1.0); MONOCYTE% 5.6 % (3.0-12.0); NEUTROPHIL# 4.5 X10e3 (1.5-7.1); NEUTROPHIL% 31.6 % (40-75); PLATELET COUNT 282 X10e3 (140-420); RED BLOOD COUNT 4.46 X10e (3.90-5.60); WHITE BLOOD COUNT 14.2 X10e3 (4.0-10.5)
[2016-12-29 05:14] LABS: POC - CKMB 3.7 ng/mL (0.0-7.9); POC - TROPONIN <0.05 ng/mL (<=0.05)
[2016-12-29 05:15] LABS: INR 0.9; PARTIAL THROMBOPLASTIN TIME 24.8 SECONDS (23.5-31.3); PROTHROMBIN TIME (PATIENT) 9.4 SECONDS (9.6-11.5)
[2016-12-29 05:34] LABS: BLOOD UREA NITROGEN 25 mg/dL (9-23); BUN/CREATININE RATIO 19.23; CALCIUM SERUM 8.5 mg/dL (8.4-10.2); CARBON DIOXIDE 22 mmol/L (22-31); CHLORIDE 108 mmol/L (100-111); CREATININE SERUM 1.3 mg/dL (0.6-1.4); GLOM FILT RATE Estimated ABOVE60 mL/min (>60); GLUCOSE FASTING 286 mg/dL (70-110); LIPASE 49 U/L (22-51); MAGNESIUM 1.8 mg/dL (1.6-3.0); POTASSIUM 4.2 mmol/L (3.5-5.1); SODIUM 140 mmol/L (135-145)
[2016-12-29 06:05] LABS: ANISOCYTOSIS MOD; PLATELET ESTIMATE NORMAL (NORMAL)
[2016-12-29 08:58] LABS: URINE SOURCE CLEAN CATCH
[2016-12-29 09:05] LABS: URINE APPEARANCE CLEAR; URINE BILIRUBIN NEG (NEG); URINE BLOOD NEG (NEG); URINE COLOR YELLOW; URINE GLUCOSE 250 MG/DL (NEG); URINE KETONE NEG (NEG); URINE LEUKOCYTE ESTERASE NEG (NEG); URINE NITRATE NEG (NEG); URINE PROTEIN 2+ (NEG); URINE SPECIFIC GRAVITY 1.016 (1.003-1.035); URINE UROBILINOGEN 0.2 MG/DL (NEG)
[2016-12-29 09:08] LABS: U HYALINE CASTS AUWI 0-2 /[LPF]; URBCS1 AUWI 0-2 /[HPF] (0-2); URINE BACTERIA AUWI NEG (NEGATIVE); URINE SQUAMOUS EPITHELIAL CELL NONE SEEN /[HPF]; UWBCS1 AUWI 0-2 (0-5)
[2016-12-29 09:10] LABS: CULTURE INDICATED? NO
[2016-12-29 12:06] LABS: MB 2.3 ng/ml
[2016-12-30 07:21] LABS: BASOPHIL# 0.1 X10e3 (0-0.3); BASOPHIL% 0.9 % (0-2.5); EOSINOPHIL# 0.1 X10e3 (0-0.7); EOSINOPHIL% 1.2 % (0.0-7.0); HEMATOCRIT 33.6 % (38.0-50.0); HEMOGLOBIN 10.5 gm/dL (13.0-16.0); LYMPHOCYTE# 2.5 X10e3 (1.0-3.5); LYMPHOCYTE% 36.8 % (17.0-45.0); MEAN CELL VOLUME 81.9 FL (83-96); MEAN CORPUSCULAR HEMOGLOBIN 25.7 PG (28-34); MEAN CORPUSCULAR HGB CONC 31.4 g/dL (30-36); MEAN PLATELET VOLUME 7.5 FL (6.5-11.5); MONOCYTE# 0.5 X10e3 (0-1.0); MONOCYTE% 7.8 % (3.0-12.0); NEUTROPHIL# 3.6 X10e3 (1.5-7.1); NEUTROPHIL% 53.3 % (40-75); PLATELET COUNT 273 X10e3 (140-420); RED CELL DISTRIBUTION WIDTH 22.2 % (11.0-15.5)
[2016-12-30 07:24] LABS: DIFF IND NO; WHITE BLOOD COUNT 6.8 X10e3 (4.0-10.5)
[2016-12-30 07:48] LABS: ALBUMIN SERUM 2.9 g/dL (3.5-5.0); ALKALINE PHOSPHATASE 188 U/L (32-92); ALT (SGPT) 101 U/L (10-40); AST (SGOT) 82 U/L (10-42); BILIRUBIN,TOTAL 0.7 mg/dL (0.2-2.0); BLOOD UREA NITROGEN 22 mg/dL (9-23); BUN/CREATININE RATIO 16.92; CALCIUM SERUM 8.7 mg/dL (8.4-10.2); CARBON DIOXIDE 24 mmol/L (22-31); CHLORIDE 107 mmol/L (100-111); CREATININE SERUM 1.3 mg/dL (0.6-1.4); GLOM FILT RATE Estimated ABOVE60 mL/min (>60); GLUCOSE FASTING 209 mg/dL (70-110); MAGNESIUM 1.8 mg/dL (1.6-3.0); POTASSIUM 4.3 mmol/L (3.5-5.1); PROTEIN TOTAL SERUM 6.7 g/dL (6.0-8.3); SODIUM 139 mmol/L (135-145)
[2016-12-31 06:13] LABS: BASOPHIL# 0.1 X10e3 (0-0.3); BASOPHIL% 1.1 % (0-2.5); EOSINOPHIL% 0.8 % (0.0-7.0); HEMATOCRIT 31.4 % (38.0-50.0); HEMOGLOBIN 9.7 gm/dL (13.0-16.0); LYMPHOCYTE# 2.7 X10e3 (1.0-3.5); LYMPHOCYTE% 43.3 % (17.0-45.0); MEAN CELL VOLUME 81.5 FL (83-96); MEAN CORPUSCULAR HEMOGLOBIN 25.2 PG (28-34); MEAN CORPUSCULAR HGB CONC 30.9 g/dL (30-36); MEAN PLATELET VOLUME 7.5 FL (6.5-11.5); MONOCYTE# 0.4 X10e3 (0-1.0); MONOCYTE% 6.4 % (3.0-12.0); NEUTROPHIL% 48.4 % (40-75); PLATELET COUNT 296 X10e3 (140-420); RED BLOOD COUNT 3.85 X10e (3.90-5.60); WHITE BLOOD COUNT 6.1 X10e3 (4.0-10.5)
[2016-12-31 06:21] LABS: DIFF IND NO
[2016-12-31 07:00] LABS: BLOOD UREA NITROGEN 24 mg/dL (9-23); CALCIUM SERUM 8.3 mg/dL (8.4-10.2); CARBON DIOXIDE 24 mmol/L (22-31); CHLORIDE 105 mmol/L (100-111); CREATININE SERUM 1.5 mg/dL (0.6-1.4); GLOM FILT RATE Estimated ABOVE60 mL/min (>60); GLUCOSE FASTING 175 mg/dL (70-110); POTASSIUM 4.4 mmol/L (3.5-5.1); SODIUM 139 mmol/L (135-145)
[2016-12-31] MEDS ORDERED: DESYREL50 MG PO (13:22)
[2016-12-31] MEDS ORDERED: VISTARIL50 MG PO (13:23)
[2016-12-31] MEDS ORDERED: AUGMENTIN875 M1 PO (13:26)
[2016-12-31] MEDS ORDERED: KCL PO (13:27)
[2017-05-21] MEDS ORDERED: FERRO-TIME325 MG PO (09:01)
[2017-05-21] MEDS ORDERED: FUROSEMIDE40 MG PO (09:02)
[2017-05-21] MEDS ORDERED: HYDRALAZINE HCL50 MG PO (09:02)
[2017-05-21] MEDS ORDERED: AMIODARONE HCL200 MG PO (09:03)
[2017-05-21] MEDS ORDERED: NORVASC10 MG PO (09:04)
[2017-05-21] MEDS ORDERED: MAG-OX 400400 M1 PO (09:04)
[2017-05-21] MEDS ORDERED: LOPRESSOR PO (09:05)
[2017-05-21] MEDS ORDERED: COREG6.25 MG PO (09:05)
[2017-05-21] MEDS ORDERED: METFORMIN PO (09:06)
[2017-05-21] MEDS ORDERED: ACCUPRIL40 MG PO (09:07)
[2017-05-21] MEDS ORDERED: XARELTO20 MG PO (09:07)
[2017-05-21] MEDS ORDERED: ALDACTONE25 MG PO (09:07)
[2017-05-21] MEDS ORDERED: LIPITOR40 MG PO (09:08)
== END 2016-12-31 14:46 | disposition home or self-care (01) | DRG 291 ==
LOC: CED 04:49 → CEDOF 05:20 → CICCU3 09:25 → C3A PCU 12-30 19:29
PROVIDERS: Internal Medicine; Nurse Practitioner Family; Student in an Organized Health Care Education/Training Program
PROC: 02HV33Z Insertion of Infusion Device into Superior Vena Cava, Percutaneous Approach (ICD-10-PCS; principal; 2016-12-30)
PROC: B548ZZA Ultrasonography of Superior Vena Cava, Guidance (ICD-10-PCS; 2016-12-30)
DX: I50.23 Acute on chronic systolic (congestive) heart failure (principal); J96.01 Acute respiratory failure with hypoxia; F33.2 Major depressive disorder, recurrent severe without psychotic features; I42.9 Cardiomyopathy, unspecified; I16.1 Hypertensive emergency; E11.9 Type 2 diabetes mellitus without complications; I49.9 Cardiac arrhythmia, unspecified; G47.33 Obstructive sleep apnea (adult) (pediatric); F17.200 Nicotine dependence, unspecified, uncomplicated; F41.9 Anxiety disorder, unspecified; F40.01 Agoraphobia with panic disorder
CPT/HCPCS: 36600; 71010; 71020; 76937; 77001; 80048; 80053; 81003; 82308; 82550; 82553; 82803; 82947; 83605; 83690; 83735; 83880; 84484; 85025; 85610; 85730; 87040; 93005; 94640; 94660; 94760; 96365; 96366; 96375; 99291; C1751; J1650; J1815; J1940; J2060; J2543; J3260; J3370; J3475

== ENCOUNTER → 2017-05-09 | Outpatient (CLI) | payer MEDICARE, OTHER ==
[~2017-05-09] MED LIST changes: +AMIODARONE HCL200 MG PO; +AUGMENTIN875 M1 PO; +COREG6.25 MG PO; +DESYREL50 MG PO; +FERRO-TIME325 MG PO; +FUROSEMIDE40 MG PO; +HYDRALAZINE HCL50 MG PO; +KCL PO; +LIPITOR40 MG PO; +MAG-OX 400400 M1 PO; +VISTARIL50 MG PO; +XARELTO20 MG PO
[2017-05-09 11:23] LABS: BUN/CREATININE RATIO 16.47; CALCIUM SERUM 9.3 mg/dL (8.4-10.2); CREATININE SERUM 1.7 mg/dL (0.6-1.4); GLOM FILT RATE Estimated 51.1 mL/min (>60)
== END | disposition home or self-care (01) ==
LOC: CLAB 09:52
PROVIDERS: Internal Medicine Cardiovascular Disease
DX: I50.9 Heart failure, unspecified (principal); I48.91 Unspecified atrial fibrillation
CPT/HCPCS: 36415; 80048; 83880

== ENCOUNTER → 2017-05-21 | Outpatient (CLI) | payer MEDICARE, OTHER ==
[~2017-05-21] VITALS: Ht 180.3 cm; Wt 110.6 kg
--- NOTE | ~2017-05-21 | EKG ---
PATIENT: COLT CURTIS UNIT #: [id number] Ventricular Rate: 64 BPM Atrial Rate: 64 BPM P-R Interval: 164 ms QRS Duration: 86 ms Q-T Interval: 436 ms QTC Calculation(Bezet): 449 ms P [place]: 52 degrees Calculated R [place]: 37 degrees Calculated T [place]: 57 degrees Diagnosis Line: Normal sinus rhythm Diagnosis Line: Nonspecific T wave abnormality Diagnosis Line: Abnormal ECG Diagnosis Line: When compared with ECG of 29-DEC-2016 08:43, Diagnosis Line: Premature atrial complexes are no longer Present Diagnosis Line: Confirmed by DEBBY ALEJANDRA MD ([id number]) on 05/21/2017 Diagnosis Line: 7:44:22 PM INTERPRETING MD: [place] CALDWELL
[2017-05-21 08:52] LABS: HEMATOCRIT 36.7 % (38.0-50.0); HEMOGLOBIN 12.1 gm/dL (13.0-16.0); MEAN CELL VOLUME 88.1 FL (83-96); MEAN CORPUSCULAR HEMOGLOBIN 29.1 PG (28-34); MEAN PLATELET VOLUME 6.3 FL (6.5-11.5); RED BLOOD COUNT 4.17 X10e (3.90-5.60); RED CELL DISTRIBUTION WIDTH 17.9 % (11.0-15.5); WHITE BLOOD COUNT 7.9 X10e3 (4.0-10.5)
[2017-05-21 09:00] LABS: INR 1.2; PARTIAL THROMBOPLASTIN TIME 31.3 SECONDS (23.5-31.3); PROTHROMBIN TIME (PATIENT) 12.8 SECONDS (10.0-11.7)
[2017-05-21 09:23] LABS: BUN/CREATININE RATIO 17.39; CALCIUM SERUM 9.2 mg/dL (8.4-10.2); CREATININE SERUM 2.3 mg/dL (0.6-1.4); GLOM FILT RATE Estimated 35.5 mL/min (>60); POTASSIUM 4.6 mmol/L (3.5-5.1)
== END | disposition home or self-care (01) ==
LOC: CCVL 08:19
PROVIDERS: Internal Medicine Cardiovascular Disease
DX: I48.91 Unspecified atrial fibrillation (principal); E11.9 Type 2 diabetes mellitus without complications
CPT/HCPCS: 36415; 80048; 85027; 85610; 85730; 93005